=== PATIENT | female | born 1945 | race Caucasian/White ===

== ENCOUNTER 2019-10-30 08:59 | Inpatient (IN) | payer MEDICARE, OTHER ==
[2019-10-29 09:38] VITALS: BMI 20.8
[~2019-10-30 08:59] MED LIST: LACTATED RINGERS 1,000 ML IV SCH; MIDAZOLAM 2 MG/2 ML VIAL IV PRN; ONDANSETRON 4 MG/2 ML VIAL IVP PRN; fentaNYL (PF) 50 MCG/ML 2 ML AMP IV PRN; fentaNYL (PF) 50 MCG/ML 2 ML AMP IVP PRN
[2019-10-30] MEDS ORDERED: ONDANSETRON 4 MG/2 ML VIAL ONE (09:48)
[2019-10-30] MEDS ORDERED: DEXAMETHASONE SOD PHOSPHATE 10 MG/ML 1 ML VIAL IV ONE ×2 (10:01→11:45)
[2019-10-30] MEDS ORDERED: LIDOCAINE 1% (10MG/ML) FOR IV START INTRADERMA ONE (10:01)
[2019-10-30] MEDS ORDERED: PROPOFOL 10 MG/ML 20 ML VIAL IV ONE ×2 (10:27→12:10)
[2019-10-30] MEDS ORDERED: LIDOCAINE 1% INJ 10MG/ML (20 ML MDV) ONE (10:27)
--- NOTE | 2019-10-30 10:52 | P.PCN ---
Date of Procedure: 10/30/19 Procedure(s) Performed: BRIEF HISTORY: Patient is a 74-year-old pleasant white female scheduled for an elective colonoscopy as a part of surveillance of prior history of colon polyps. Her last colonoscopy was 5 years ago. PROCEDURE PERFORMED: Colonoscopy with biopsy. PREOPERATIVE DIAGNOSIS: History of colon polyps. IV sedation per Anesthesia. PROCEDURE: After informed consent was obtained, the patient, was brought into the endoscopy unit. IV sedation was administered by Anesthesia under continuous monitoring. Digital rectal examination was normal. Initially the Olympus CF-160 flexible video colonoscope was then inserted in the rectum, gradually advanced into the cecum with moderate to severe difficulty. Careful examination was performed as the scope was gradually being withdrawn. Ileocecal valve and the appendiceal orifice were visualized and appeared normal. Prep was excellent. Mucosa of the cecum, appeared normal. In the ascending colon there was a 5 mm polyp removed by cold biopsy. Rest of the ascending colon, transverse colon, descending colon, sigmoid colon, and rectum appeared normal. Scattered sigmoid diverticulosis seen. Retroflexion was performed in the rectum and no lesions were seen. The patient tolerated the procedure well. IMPRESSION: 5 mm ascending colon polyp status post removal by cold biopsy Scattered left-sided diverticulosis RECOMMENDATIONS: Findings of this examination were discussed with the patient as well as a family..He developed some aspiration during the procedure with extensive wheezing and hence will be observed in the postop closely. Patient was advised to follow with the biopsy results. If the biopsies show adenoma she can have a repeat colonoscopy in 5 yrs
[2019-10-30] MEDS ORDERED: methylPREDNISolone SOD SUCCI 125 MG/2 ML VIAL IVP ONE (10:58)
[2019-10-30] MEDS ORDERED: ALBUTEROL NEBULIZED 2.5 MG/3 ML INHALATION ONE ×2 (10:58→11:05)
[2019-10-30] MEDS ORDERED: MAGNESIUM SULFATE-D5W PMX 1 GM/100 ML BAG IVPB ONE ×2 (11:10→11:24)
[2019-10-30] MEDS ORDERED: MAGNESIUM SULFATE-D5W PMX 1 GM in DEXTROSE/WATER 1 100ML.BAG IVPB SCH (11:15)
[2019-10-30] MEDS ORDERED: IPRATROPIUM-ALBUTEROL 3 ML NEB INHALATION STA (11:22)
--- NOTE | 2019-10-30 11:51 | XR ---
EXAMINATION TYPE: XR chest 1V portable DATE OF EXAM: 10/30/2019 HISTORY: Shortness of breath. COMPARISON: 07/05/2019 TECHNIQUE: Single view of the chest is submitted. FINDINGS: Demonstrated are scattered senescent parenchymal change. Patchy density left perihilar and right infrahilar regions may reflect underlying infiltrate. Correla te clinically and progress studies are recommended. The heart is stable. Hilar and mediastinal structures are within normal limits. Degenerative changes are seen of the dorsal spine. IMPRESSION: 1. Patchy density left perihilar and right infrahilar regions may reflect underlying infiltrate. Cor relate clinically and progress studies are recommended.
[2019-10-30] MEDS ORDERED: LORazepam 2 MG/ML INJ IV ONE (11:52)
[2019-10-30] MEDS ORDERED: RACEPINEPHRINE 2.25% NEB 0.5 ML NEBU INHALATION ONE ×2 (11:52→11:54)
[2019-10-30] MEDS ORDERED: SUCCINYLCHOLINE CHLORIDE 100 MG/5 ML SYR IV ONE (12:10)
[2019-10-30] MEDS ORDERED: propofoL 100 ML IV ONE (12:22)
--- NOTE | 2019-10-30 12:23 | P.PCN ---
Date of Procedure: 10/30/19 Preoperative Diagnosis: respiratory failure Postoperative Diagnosis: respiratory failure Procedure(s) Performed: endotracheal intubation Implants: none Anesthesia: ADELIA Surgeon: Austin Smith Estimated Blood Loss (ml): 0 IV fluids (ml): 50 Urine output (ml): 0 Pathology: none sent Condition: stable Disposition: ICU Indications for Procedure: respiratory failure Description of Procedure: using a mac3 blade, a 7.0 cuffed endotracheal tube inserted first attempt, grade 3 view, ET CO2 detected and bilateral equal air entry confirmed, 24 cm at the lips. medication given, propofol 60 mg and succinyl choline 100 mg. patient will be transfered to ICU to be started on sedation and a Chest Xray to confirm tube placement.
[2019-10-30 12:34] LABS: Glucose,Whole Blood 316 mg/dL (75-99)
--- NOTE | 2019-10-30 13:07 | XR ---
EXAMINATION TYPE: XR chest 1V portable DATE OF EXAM: 10/30/2019 HISTORY: Shortness of breath. COMPARISON: 10/30/2019 TECHNIQUE: Single view of the chest is submitted. FINDINGS: Endotracheal tube has been placed with its distal tip by 1.6 cm from the stacey. NG tube is seen cour sing into the stomach. Patchy perihilar infiltrate noted on the left. The heart is stable. Hilar and mediastinal structures are within normal limits. Degenerative changes are seen of the dorsal spine. IMPRESSION: 1. Endotracheal tube has been placed with its distal tip by 1.6 cm from the stacey. NG tube is seen coursing into the stomach. Patchy perihilar infiltrate noted on the left.
[2019-10-30] MEDS ORDERED: MORPHINE SULFATE 2 MG/ML SYRINGE IVP PRN (13:16)
[2019-10-30] MEDS ORDERED: IPRATROPIUM-ALBUTEROL 3 ML NEB INHALATION PRN (13:17)
[2019-10-30] MEDS ORDERED: MORPHINE SULFATE 2 MG/ML SYRINGE IVP ONE (14:00)
[2019-10-30 14:22] LABS: ABG HCO3 25 mmol/L (21-25); ABG Oxygen Saturation 99.2 % (94-97); ABG PCO2 47 mmHg (35-45); ABG PH 7.33 (7.35-7.45); ABG PO2 176 mmHg (83-108); ABG TCO2 26 mmol/L (19-24); Allen Test Performed? Yes
[2019-10-30 15:01] LABS: ALT 17 U/L (4-34); AST 24 U/L (14-36); African American GFR (CKD) >90 (>60 ml/min/1.73 sqM); Albumin 3.8 g/dL (3.5-5.0); Alkaline Phosphatase 85 U/L (38-126); Anion Gap 8 mmol/L; Basophils % (A) 0 %; Blood Urea Nitrogen 12 mg/dL (7-17); Calcium 9.2 mg/dL (8.4-10.2); Carbon Dioxide 26 mmol/L (22-30); Chloride 101 mmol/L (98-107); Eosinophils # (A) 0.1 k/uL (0-0.7); Eosinophils % (A) 0 %; Glucose 217 mg/dL (74-99); HCT 41.8 % (34.0-46.0); HGB 13.3 gm/dL (11.4-16.0); Lymphocytes # (A) 0.5 k/uL (1.0-4.8); Lymphocytes % (A) 3 %; MCH 31.2 pg (25.0-35.0); MCHC 31.9 g/dL (31.0-37.0); MCV 98.1 fL (80.0-100.0); Mean Platelet Volume 6.8; Monocytes # (A) 0.5 k/uL (0-1.0); Monocytes % (A) 3 %; Neutrophils # (A) 14.8 k/uL (1.3-7.7); Neutrophils % (A) 93 %; Non-African American GFR(CKD) 84 (>60 ml/min/1.73 sqM); Platelet Count 325 k/uL (150-450); Potassium 3.6 mmol/L (3.5-5.1); RBC 4.26 m/uL (3.80-5.40); RDW 12.4 % (11.5-15.5); Sodium 135 mmol/L (137-145); Total Bilirubin 0.5 mg/dL (0.2-1.3); Total Protein 6.2 g/dL (6.3-8.2); WBC 15.8 k/uL (3.8-10.6)
[2019-10-30 15:10] LABS: Glucose,Whole Blood 222 mg/dL (75-99)
[2019-10-30] MEDS: IPRATROPIUM-ALBUTEROL 3 ML NEB INHALATION SCH ×2 (15:16→19:46)
[2019-10-30] MEDS: CHLORHEXIDINE GLUCONATE 15 ML CUP MUCOUS MEM SCH ×2 (15:24→20:16)
--- NOTE | 2019-10-30 15:25 | P.CNPUL ---
History of Present Illness Consult date: 10/30/19 Requesting physician: Austin Smith Reason for consult: dyspnea Chief complaint: Acute bronchospasm, acute respiratory failure History of present illness: 74-year-old white female patient of Alcon Melgoza PA-C, who presented to the hospital on 10/30/2027 for elective colonoscopy as a part of surveillance or prior history of colon polyps. Patient's last colonoscopy was 5 years ago. Colonoscopy showed 5 mg ascending colon polyp status post removal by cold biopsy, and scattered left-sided diverticulosis. During the procedure patient developed some aspiration with secondary acute bronchospasm, and respiratory distress. Patient was hypoxic, very wheezy, anxious, and wheezy, breathing treatments were administered, IV magnesium sulfate was given, patient was placed on BiPAP support with pressures of 18 and 6, and FiO2 of 100%, we were called emergently to the postoperative phase 1 recovery area for urgent evaluation placement in the intensive care unit. Racemic epinephrine was administered, patient was given dose of IV Decadron 6 mg, patient continued to be extremely anxious, sitting up straight in bed, tolerating BiPAP poorly, we attempted to give the patient has small dose of Ativan to 0.5 mg for anxiety and poor compliance with BiPAP. Patient continued to be very dyspneic, bronchospastic, IPAP pressure was dropped down to 12 in hopes of better tolerance of BIPAP, however patient became very air hungry, and started desaturating, and his IPAP pressure was increased back up to 18, after some observation for improvement of her breathing, patient unfortunately did not show significant improvement in terms of acute bronchospasm and acute dyspnea, remain very tachypneic, very labored breathing, anxious, and the decision was made to proceed with intubation placement on mechanical ventilator. Patient was sedated with propofol, currently on 75 mics per kilo per minute, transferred to the intensive care unit, on vent settings of assist control mode of ventilation with a rate of 14, Tylenol 400, FiO2 of 50%, and PEEP of 5. Patient continued to be extremely restless and fighting the vent, when necessary doses of morphine have been added, blood gas was obtained after bone marrow were on the mechanical ventilator, showing pO2 176, pCO2 47, and pH of 7.30. Chest x-ray immediately following the colonoscopy showed patchy density in the left. Hilar and right infrahilar regions that could reflect underlying infiltrate. Chest x-ray following intubation showed ET tube with its distal tip at 1.6 cm from the stacey, G-tube in the appropriate position, and patchy perihilar infiltrate noted on the left. Patient was given additional doses of IV steroids, additional sedation in the form of morphine in addition to Diprivan, empiric antibiotics in the form of Zosyn, nebulized bronchodilators. Of note patient has a history of COPD for which she follows with Dr. Salas in the office, last PFT from February, showed FEV1 of 51% of predicted and diffusion defect and DLCO of 43% of predicted. Maintenance COPD medications include Advair discus, Singulair, and Ventolin Review of Systems All systems: negative Constitutional: Denies chills, Denies fever Eyes: denies blurred vision, denies pain Ears, nose, mouth and throat: Denies headache, Denies sore throat Cardiovascular: Denies chest pain, Denies shortness of breath Respiratory: Reports dyspnea, Reports wheezing, Denies cough Gastrointestinal: Denies abdominal pain, Denies diarrhea, Denies nausea, Denies vomiting Genitourinary: Denies dysuria, Denies hematuria Musculoskeletal: Denies myalgias Integumentary: Denies pruritus, Denies rash Neurological: Denies numbness, Denies weakness Psychiatric: Reports anxiety, Denies depression Endocrine: Denies fatigue, Denies weight change Past Medical History Past Medical History: COPD Additional Past Medical History / Comment(s): SEASONAL ALLERGIES, kidney stone History of Any Multi-Drug Resistant Organisms: None Reported Past Surgical History: Hysterectomy, Tonsillectomy Additional Past Surgical History / Comment(s): GANGLION CYST LEFT WRIST, BSO, COLONOSCOPY Past Anesthesia/Blood Transfusion Reactions: Motion Sickness Past Psychological History: No Psychological Hx Reported Smoking Status: Former smoker Past Alcohol Use History: Rare Additional Past Alcohol Use History / Comment(s): QUIT SMOKING 2008-STARTED SMOKING AGAIN IN 2016-SMOKES ABOUT 7-9 CIGARETTES DAILY Past Drug Use History: None Reported - Past Family History Father Family Medical History: Cancer Additional Family Medical History / Comment(s): COLON CANCER Mother Family Medical History: Cancer Additional Family Medical History / Comment(s): COLON CANCER Medications and Allergies Home Medications Medication Instructions Recorded Confirmed Type Albuterol Sulfate [Ventolin HFA] 1 - 2 puff INHALATION Q6H PRN 10/29/19 10/30/19 History Fluticasone/Salmeterol [Advair 1 inhalation PO BID 10/29/19 10/30/19 History 250-50 Diskus] Allergies Allergy/AdvReac Type Severity Reaction Status Date / Time No Known Allergies Allergy Verified 10/30/19 09:44 Physical Exam Vitals: Vital Signs Temp Pulse Pulse Pulse Resp BP Pulse Ox 10/30/19 12:05 122 H 10/30/19 12:02 118 H 32 H 176/98 98 10/30/19 11:53 117 H 10/30/19 11:46 120 H 32 H 205/97 98 10/30/19 11:32 118 H 28 H 206/98 98 10/30/19 11:30 118 H 10/30/19 11:23 117 H 10/30/19 11:16 110 H 32 H 208/93 96 10/30/19 11:00 116 H 32 H 219/98 66 L 10/30/19 10:54 96.7 F L 91 28 H 216/97 76 L 10/30/19 09:41 97.6 F 81 16 154/68 95 Intake and Output 10/29/19 10/30/19 10/30/19 22:59 06:59 14:59 Intake Total 847.964 Balance 847.964 Intake: IV 800 Intake, IV Titration 47.964 Amount propofoL 1,000 mg In 47.964 Empty Bag 1 bag @ Titrate IV .Q0M [facility] Rx#: [id number] Other: Weight 57.1 kg GENERAL EXAM: Alert, very agitated, 74-year-old white female, on BiPAP support, seen in the phase 1 recovery area, sitting up straight and trying to pull off the BiPAP mask off, very dyspneic and bronchospastic. BiPAP settings are currently at 18/6, and FiO2 of 100% HEAD: Normocephalic/atraumatic. EYES: Normal reaction of pupils, equal size. Conjunctiva pink, sclera white. NOSE: Clear with pink turbinates. THROAT: No erythema or exudates. NECK: No masses, no JVD, no thyroid enlargement, no adenopathy. CHEST: No chest wall deformity. Symmetrical expansion. LUNGS: Tight, and diminished air entry with diffuse expiratory wheezing, prolongation of expiratory phase of breathing, wheezing upper and lower airways CVS: Regular rate and rhythm, normal S1 and S2, no gallops, no murmurs, no rubs ABDOMEN: Soft, nontender. No hepatosplenomegaly, normal bowel sounds, no guarding or rigidity. EXTREMITIES: No clubbing, no edema, no cyanosis, 2+ pulses and upper and lower extremities. MUSCULOSKELETAL: Muscle strength and tone normal. SPINE: No scoliosis or deformity SKIN: No rashes CENTRAL NERVOUS SYSTEM: Alert and oriented -3. No focal deficits, tone is normal in all 4 extremities. Results - Laboratory Findings ABG ABG pH 7.33 (7.35-7.45) L 10/30/19 14:20 ABG pCO2 47 mmHg (35-45) H 10/30/19 14:20 ABG pO2 176 mmHg (83-108) H 10/30/19 14:20 ABG O2 Saturation 99.2 % (94-97) H 10/30/19 14:20 Abnormal lab findings: Abnormal Labs 10/30/19 10/30/19 12:32 14:20 ABG pH 7.33 L ABG pCO2 47 H ABG pO2 176 H ABG Total CO2 26 H ABG O2 Saturation 99.2 H POC Glucose (mg/dL) 316 H - Diagnostic Findings Chest x-ray: report reviewed, image reviewed Assessment and Plan Plan: Assessment: #1. Acute hypoxic respiratory failure related to acute aspiration of gastric secretions during colonoscopy, with acute and severe bronchospasm, respiratory distress, and hypoxia, requiring BiPAP support, and subsequently intubation and placement on mechanical ventilation on 10/30/2019. Follow-up chest x-ray showed patchy perihilar infiltrate on the left, possibly related to acute aspiration, and Zosyn was initiated for empiric antibiotic coverage in addition to IV steroids and nebulized bronchodilators #2. Elective colonoscopy on 10/30/2019, for surveillance a prior history of colon polyps, with findings of 5 mm ascending colon polyp status post removal by cold biopsy, and scattered left-sided diverticulosis #3. Advanced COPD, stage III, with underlying FEV1 of 51% of predicted, and impaired diffusion capacity, and DLCO 42% of predicted as of February 2018. Currently not oxygen dependent on the regular basis #4. [id number] smoking history, patient may still be smoking at this time (currently unable to determine) #5. Straight of multiple nonspecific pulmonary nodules, under surveillance, patient follows with Dr. Salas in the pulmonary clinic #6. Chronic dyspnea on exertion related to severe COPD #7. Severe GERD/reflux Plan: Continue mechanical ventilator support, continue sedation, we will add morphine for pain and discomfort and additional sedation, to maintain RASS -3, continue IV Solu-Medrol 60 mg every 6 hours, nebulized bronchodilators, and Pulmicort, Perforomist, we will add empiric antibiotic coverage, post intubation blood gases have been reviewed, vent adjustments have been made, currently patient is on assist-control, and the rate will be increased to 18, tidal volume 400, FiO2 is down to 35% and PEEP of 5. GI and DVT prophylaxis, repeat chest x-ray and labs in the morning. We'll continue to follow, plan on waking the patient up in the morning, assessment of mentation, will likely attempt to wean and extubate in the morning. I performed a history & physical examination of the patient and discussed their management with my nurse practitioner, Kristal Pro. I reviewed the nurse practitioner's note and agree with the documented findings and plan of care. Lung sounds are positive for diffuse wheezes throughout the lung olivier. The findings and the impression was discussed with the patient. I attest to the documentation by the nurse practitioner. Time with Patient: Greater than 30
[2019-10-30] MEDS: PIPERACILLIN-TAZOBACTAM 3.375 GM in SODIUM CHLORIDE 0.9% 100 ML IVPB SCH (15:26)
[2019-10-30] MEDS: SODIUM CHLORIDE 0.9% 1,000 ML IV SCH (15:26)
[2019-10-30] MEDS: HEPARIN SODIUM,PORCINE 5,000 UNIT/ML 1 ML VIAL SQ SCH (15:27)
[2019-10-30] MEDS: methylPREDNISolone SOD SUCCI 125 MG/2 ML VIAL IV SCH ×2 (15:28→18:47)
[2019-10-30] MEDS: INSULIN ASPART (NovoLOG) 100 UNIT/ML VIAL SQ SCH ×2 (15:28→18:47)
--- NOTE | 2019-10-30 16:43 | PCN ---
PROCEDURE NOTE PROCEDURE: Emergent placement of right radial arterial line. PREOPERATIVE DIAGNOSIS: Acute hypoxic respiratory failure secondary to acute exacerbation of COPD, and hypotension. POSTOPERATIVE DIAGNOSIS: Acute hypoxic respiratory failure secondary to acute exacerbation of COPD, and hypotension. ANESTHESIA: None deployed. PROCEDURE: The patient was placed in a supine position, the right wrist was prepared in a sterile fashion and drapes were applied. The right radial artery was palpated, cannulated, and a guidewire was placed. A Cook catheter was inserted over the guidewire, and the guidewire was removed. Good blood flow and good waveform noted. No evidence of any immediate complications. The line was secured using 3.0 silk suture. MMODL / IJN: [id number] /
[2019-10-30 18:41] LABS: Glucose,Whole Blood 140 mg/dL (75-99)
[2019-10-30] MEDS ORDERED: Potassium Replacement Protocol 1 EACH MISC MISCELLANE PRN (18:43)
[2019-10-30] MEDS: BUDESONIDE 1 MG/2 ML NEBU INHALATION SCH (19:46)
[2019-10-30] MEDS: FORMOTEROL FUMARATE 20 MCG/2 ML NEBU INHALATION SCH (19:46)
[2019-10-30] MEDS ORDERED: POTASSIUM BICARBONATE/CIT AC 20 MEQ TABLET.EFF NG-TUBE SCH (20:00)
[2019-10-30] MEDS: MORPHINE SULFATE 10 MG/ML 1ML VIAL IVP PRN (20:03)
[2019-10-30] MEDS: PANTOPRAZOLE 40 MG/10 ML VIAL IVP SCH (20:16)
--- NOTE | 2019-10-30 20:48 | P.HPIM ---
History of Present Illness H&P Date: 10/30/19 Chief Complaint: Acute respiratory failure. Patient is a 44-year-old female with a known history of COPD and family history of colon cancer in both parents and a prior history of colon polyps, previous history of smoking was initially scheduled for elective colonoscopy for cancer surveillance. Patient was found to have 5 mm ascending colon polyp status post removal by cold biopsy and also found to have scattered left-sided diverticulosis. Postprocedure patient became hypoxic and wheezy and went into respiratory failure. Patient was placed BiPAP in the recovery area. Patient was given a dose of epinephrine and IV Decadron 6 mg for acute bronchospasm. Patient became very anxious and also given 0.5 mg of Ativan. Due to continued dyspnea patient was eventually intubated and transferred to MICU. Patient was very restless and fighting over the vent. Patient was given a dose of morphine and was placed on Versed drip. ABG showed pH of 7.33, PCO2 47, PO2 176 and bicarb is 26 Lab data showed WBC 15.8, hemoglobin 13.3 and platelets 325 Electrolytes within normal limits. Blood sugar was 316 Chest x-ray showed patchy density left perihilar and right infrahilar region may reflect underlying infiltrate. Correlate clinically and progress studies are recommended. Review of Systems Review of systems could not be obtained at this time. Past Medical History Past Medical History: COPD Additional Past Medical History / Comment(s): SEASONAL ALLERGIES, kidney stone History of Any Multi-Drug Resistant Organisms: None Reported Past Surgical History: Hysterectomy, Tonsillectomy Additional Past Surgical History / Comment(s): GANGLION CYST LEFT WRIST, BSO, COLONOSCOPY Past Anesthesia/Blood Transfusion Reactions: Motion Sickness Past Psychological History: No Psychological Hx Reported Smoking Status: Former smoker Past Alcohol Use History: Rare Additional Past Alcohol Use History / Comment(s): QUIT SMOKING 2008-STARTED SMOKING AGAIN IN 2016-SMOKES ABOUT 7-9 CIGARETTES DAILY Past Drug Use History: None Reported - Past Family History Father Family Medical History: Cancer Additional Family Medical History / Comment(s): COLON CANCER Mother Family Medical History: Cancer Additional Family Medical History / Comment(s): COLON CANCER Medications and Allergies Home Medications Medication Instructions Recorded Confirmed Type Albuterol Sulfate [Ventolin HFA] 1 - 2 puff INHALATION Q6H PRN 09/22/20 09/23/20 History Fluticasone/Salmeterol [Advair 1 inhalation PO BID 10/29/19 10/30/19 History 250-50 Diskus] Allergies Allergy/AdvReac Type Severity Reaction Status Date / Time No Known Allergies Allergy Verified 10/30/19 09:44 Physical Exam Vitals: Vital Signs Temp Pulse Pulse Pulse Resp BP Pulse Ox 10/30/19 12:05 122 H 10/30/19 12:02 118 H 32 H 176/98 98 10/30/19 11:53 117 H 10/30/19 11:46 120 H 32 H 205/97 98 10/30/19 11:32 118 H 28 H 206/98 98 10/30/19 11:30 118 H 10/30/19 11:23 117 H 10/30/19 11:16 110 H 32 H 208/93 96 10/30/19 11:00 116 H 32 H 219/98 66 L 10/30/19 10:54 96.7 F L 91 28 H 216/97 76 L 10/30/19 09:41 97.6 F 81 16 154/68 95 Intake and Output 10/29/19 10/30/19 10/30/19 22:59 06:59 14:59 Intake Total 847.964 Balance 847.964 Intake: IV 800 Intake, IV Titration 47.964 Amount propofoL 1,000 mg In 47.964 Empty Bag 1 bag @ Titrate IV .Q0M [facility] Rx#: [id number] Other: Weight 57.1 kg PHYSICAL EXAMINATION: Patient is lying in the bed comfortably,On mechanical ventilator. Sedated... HEENT: Normocephalic. Neck is supple. Pupils reactive. Nostrils clear. Oral cavity is moist. Ears reveal no drainage. Neck reveals no JVD, carotid bruits, or thyromegaly. CHEST EXAMINATION: Trachea is central. Symmetrical expansion.Bilateral expiratory wheezing otherwise no crackles. Bilateral air entry present. . CARDIAC: Normal S1, S2 with no gallops. No murmurs ABDOMEN: Soft. Bowel sounds normal. No organomegaly. No abdominal bruits. Extremities: reveal no edema. No clubbing or cyanosis Neurologically Patient is currently sedated and intubated.. No focal deficits noted Skin: No rash or skin lesions. Psychiatric: Could not obtain from the patient. Musculoskeletal: No joint swelling or deformity. Results CBC & Chem 7: 10/30/19 14:34 10/30/19 14:34 Labs: Abnormal Lab Results - Last 24 Hours (Table) 10/30/19 10/30/19 Range/Units 12:32 14:20 ABG pH 7.33 L (7.35-7.45) ABG pCO2 47 H (35-45) mmHg ABG pO2 176 H (83-108) mmHg ABG Total CO2 26 H (19-24) mmol/L ABG O2 Saturation 99.2 H (94-97) % POC Glucose (mg/dL) 316 H (75-99) mg/dL Thrombosis Risk Factor Assmnt - DVT/VTE Prophylaxis DVT/VTE Prophylaxis: Pharmacologic Prophylaxis ordered - Choose All That Apply Any of the Below Risk Factors Present?: No Each Risk Factor Represents 2 Points: Age 61-74 years Thrombosis Risk Factor Assessment Total Risk Factor Score: 2 Thrombosis Risk Factor Assessment Level: Low Risk Assessment and Plan Assessment: Acute hypoxic respiratory failure due to Acute bronchospasm and possible aspiration during colonoscopy procedure. Elective colonoscopy for cancer surveillance due to history of polyps. Advanced COPD History of multiple nonspecific pulmonary nodules on follow-up with pulmonary in the clinic GERD Previous history of smoking DVT prophylaxis. Plan: Patient is currently sedated and on mechanical ventilation. Continued on IV Solu-Medrol bronchodilators and empiric antibiotics. Continue to monitor closely and pulmonary is on board. Possible extubation in the next 24 hours. Further recommendations based on the clinical course. Time with Patient: Greater than 30
[2019-10-30 23:51] LABS: Glucose,Whole Blood 157 mg/dL (75-99)
[2019-10-31] MEDS: MORPHINE SULFATE 10 MG/ML 1ML VIAL IVP PRN (00:01)
[2019-10-31] MEDS: INSULIN ASPART (NovoLOG) 100 UNIT/ML VIAL SQ SCH ×5 (00:14→21:29)
[2019-10-31] MEDS: PIPERACILLIN-TAZOBACTAM 3.375 GM in SODIUM CHLORIDE 0.9% 100 ML IVPB SCH ×3 (00:15→15:35)
[2019-10-31] MEDS: methylPREDNISolone SOD SUCCI 125 MG/2 ML VIAL IV SCH ×2 (00:15→06:02)
[2019-10-31] MEDS: HEPARIN SODIUM,PORCINE 5,000 UNIT/ML 1 ML VIAL SQ SCH ×3 (00:16→15:35)
[2019-10-31] MEDS: IPRATROPIUM-ALBUTEROL 3 ML NEB INHALATION SCH ×6 (00:26→20:19)
[2019-10-31 04:15] LABS: Basophils % (A) 0 %; Eosinophils % (A) 0 %; HCT 35.5 % (34.0-46.0); HGB 11.5 gm/dL (11.4-16.0); Lymphocytes # (A) 0.5 k/uL (1.0-4.8); Lymphocytes % (A) 3 %; MCH 30.9 pg (25.0-35.0); MCHC 32.3 g/dL (31.0-37.0); MCV 95.6 fL (80.0-100.0); Mean Platelet Volume 7.3; Monocytes # (A) 0.2 k/uL (0-1.0); Monocytes % (A) 2 %; Neutrophils # (A) 14.2 k/uL (1.3-7.7); Neutrophils % (A) 95 %; Platelet Count 239 k/uL (150-450); RBC 3.71 m/uL (3.80-5.40); RDW 12.2 % (11.5-15.5); WBC 14.9 k/uL (3.8-10.6)
[2019-10-31 04:30] LABS: African American GFR (CKD) >90 (>60 ml/min/1.73 sqM); Anion Gap 4 mmol/L; Blood Urea Nitrogen 15 mg/dL (7-17); Calcium 8.8 mg/dL (8.4-10.2); Carbon Dioxide 25 mmol/L (22-30); Chloride 105 mmol/L (98-107); Glucose 193 mg/dL (74-99); Non-African American GFR(CKD) 87 (>60 ml/min/1.73 sqM); Potassium 3.9 mmol/L (3.5-5.1); Sodium 134 mmol/L (137-145)
[2019-10-31 06:00] LABS: Glucose,Whole Blood 187 mg/dL (75-99)
[2019-10-31] MEDS ORDERED: POTASSIUM BICARBONATE/CIT AC 20 MEQ TABLET.EFF NG-TUBE SCH (06:00)
--- NOTE | 2019-10-31 06:38 | XR ---
EXAMINATION TYPE: XR chest 1V portable DATE OF EXAM: 10/31/2019 CLINICAL HISTORY: Difficulty breathing progress study. TECHNIQUE: Single AP portable semiupright view of the chest is obtained. COMPARISON: Chest x-ray from one day earlier and older studies. FINDINGS: Stable slightly low-lying endotracheal and orogastric tubes. Background chronic emphysemat ous change with worsening left perihilar opacity and developing lateral left midlung wedge-shaped con solidation with air bronchograms. Right lung remains clear. No pleural effusion or pneumothorax noted . Cardiac silhouette size stable and mildly enlarged with atherosclerotic aorta. Osseous structures a re intact. IMPRESSION: Chronic emphysematous change with worsening left perihilar acute infiltrate and/or edema and developing lateral left midlung focal consolidation with air bronchograms are
[2019-10-31 07:16] LABS: ABG Base Excess -0.3 mmol/L; ABG HCO3 25 mmol/L (21-25); ABG Oxygen Saturation 98.2 % (94-97); ABG PCO2 40 mmHg (35-45); ABG PO2 107 mmHg (83-108); ABG TCO2 26 mmol/L (19-24)
[2019-10-31 07:23] LABS: Allen Test Performed? no
[2019-10-31] MEDS: BUDESONIDE 1 MG/2 ML NEBU INHALATION SCH ×2 (07:40→20:19)
[2019-10-31] MEDS: FORMOTEROL FUMARATE 20 MCG/2 ML NEBU INHALATION SCH ×2 (07:40→20:19)
[2019-10-31] MEDS ORDERED: PANTOPRAZOLE 40 MG/10 ML VIAL IVP SCH (09:00)
[2019-10-31 09:07] LABS: ABG Base Excess -0.6 mmol/L; ABG HCO3 24 mmol/L (21-25); ABG Oxygen Saturation 98.5 % (94-97); ABG PCO2 40 mmHg (35-45); ABG PO2 116 mmHg (83-108); ABG TCO2 26 mmol/L (19-24)
[2019-10-31 09:09] LABS: Allen Test Performed? no
[2019-10-31] MEDS ORDERED: ALPRAZolam 0.25 MG TAB PO PRN (09:27)
[2019-10-31] MEDS: amLODIPine 5 MG TAB PO SCH (09:54)
[2019-10-31] MEDS: PANTOPRAZOLE 40 MG TABLET PO SCH ×2 (09:54→17:23)
[2019-10-31] MEDS: SODIUM CHLORIDE 0.9% 1,000 ML IV SCH (10:11)
--- NOTE | 2019-10-31 12:30 | P.PN ---
Subjective Progress Note Date: 10/31/19 Principal diagnosis: Acute hypoxic respiratory failure secondary to aspiration of gastric secretions during colonoscopy with severe bronchospasm requiring intubation and mechanical ventilation. 74-year-old white female patient of Alcon Melgoza PA-C, who presented to the hospital on 10/30/2027 for elective colonoscopy as a part of surveillance or prior history of colon polyps. Patient's last colonoscopy was 5 years ago. Colonoscopy showed 5 mg ascending colon polyp status post removal by cold biopsy, and scattered left-sided diverticulosis. During the procedure patient developed some aspiration with secondary acute bronchospasm, and respiratory distress. Patient was hypoxic, very wheezy, anxious, and wheezy, breathing treatments were administered, IV magnesium sulfate was given, patient was placed on BiPAP support with pressures of 18 and 6, and FiO2 of 100%, we were called emergently to the postoperative phase 1 recovery area for urgent evaluation placement in the intensive care unit. Racemic epinephrine was administered, patient was given dose of IV Decadron 6 mg, patient continued to be extremely anxious, sitting up straight in bed, tolerating BiPAP poorly, we attempted to give the patient has small dose of Ativan to 0.5 mg for anxiety and poor compliance with BiPAP. Patient continued to be very dyspneic, bronchospastic, IPAP pressure was dropped down to 12 in hopes of better tolerance of BIPAP, however patient became very air hungry, and started desaturating, and his IPAP pressure was increased back up to 18, after some observation for improvement of her breathing, patient unfortunately did not show significant improvement in terms of acute bronchospasm and acute dyspnea, remain very tachypneic, very labored breathing, anxious, and the decision was made to proceed with intubation placement on mechanical ventilator. Patient was sedated with propofol, currently on 75 mics per kilo per minute, transferred to the intensive care unit, on vent settings of assist control mode of ventilation with a rate of 14, Tylenol 400, FiO2 of 50%, and PEEP of 5. Patient continued to be extremely restless and fighting the vent, when necessary doses of morphine have been added, blood gas was obtained after bone marrow were on the mechanical ventilator, showing pO2 176, pCO2 47, and pH of 7.30. Chest x-ray immediately following the colonoscopy showed patchy density in the left. Hilar and right infrahilar regions that could reflect underlying infiltrate. Chest x-ray following intubation showed ET tube with its distal tip at 1.6 cm from the elizabeth a, G-tube in the appropriate position, and patchy perihilar infiltrate noted on the left. Patient was given additional doses of IV steroids, additional sedation in the form of morphine in addition to Diprivan, empiric antibiotics in the form of Zosyn, nebulized bronchodilators. Of note patient has a history of COPD for which she follows with Dr. Salas in the office, last PFT from February, showed FEV1 of 51% of predicted and diffusion defect and DLCO of 43% of predicted. Maintenance COPD medications include Advair discus, Singulair, and Ventolin Patient was reevaluated today on 10/27/19, remains in the ICU, intubated and mechanically ventilated. Patient is on assist control rate of 18 tidal volume is 400 FiO2 is 35% and PEEP of 5 ABG showed a pO2 of 107 pCO2 of 40 pH of 7.40. Patient is on propofol at 25 mcg/kg/m, IV fluid is 0.9 normal saline at 50 mL per hour. Patient is not requiring any pressors. She is arousable, follows simple instructions, heart rate is sinus at 92 beats per minutes. Chest x-ray showed no evidence of significant abnormality, minimal left perihilar infiltrate noted. Right lower lobe atelectasis or infiltrate noted. Her labs were basically unremarkable. And a nasogastric tube is in place but she is not on enteral feeding get. After reviewing her chest x-ray and reviewing her labs, patient was switched to a pressure support of 10 and PEEP of 5. Placed on this mode for about half an hour, repeat ABG was excellent. Hence patient was extub ated to a nasal cannula. In the meantime I kept her on bronchodilators and steroids. I will cut the dose of Solu-Medrol to 40 mg IV push every 8 hours, and I will continue antibiotics/Zosyn possibly switch her to Augmentin tomorrow. ABG on CPAP showed a pO2 of 116 pCO2 of 40 pH of 7.40. WBC count is 14.9 hemoglobin is 11.5. Index was are normal renal profile is normal. Objective - Vital Signs Vital signs: Vital Signs Temp 98.3 F 10/31/19 04:00 Pulse 96 10/31/19 11:25 Resp 18 10/31/19 07:00 BP 96/47 09/23/20 16:00 Pulse Ox 99 10/31/19 07:00 Intake & Output 10/30/19 10/31/19 10/31/19 18:59 06:59 18:59 Intake Total 1356.964 876.000 106.459 Output Total 270 566 55 Balance 1086.964 310.000 51.459 Weight 57.1 kg 62.8 kg Intake: IV 809 686 53 Normal Saline Pressure 9 36 3 Bag Piperacillin-Tazobactam 3 100 .375 gm In Sodium Chloride 0.9% 100 ml @ 25 mls/hr IVPB Q8HR [facility] Rx# :[id number] Sodium Chloride 0.9% 1, 550 50 000 ml @ 50 mls/hr IV . Q20H [facility] Rx#:[id number] Intake, IV Titration 547.964 150.000 53.459 Amount Piperacillin-Tazobactam 3 100 .375 gm In Sodium Chloride 0.9% 100 ml @ 25 mls/hr IVPB Q8HR [facility] Rx# :[id number] Sodium Chloride 0.9% 1, 300 50 000 ml @ 50 mls/hr IV . Q20H [facility] Rx#:[id number] propofoL 1,000 mg In 147.964 100.000 53.459 Empty Bag 1 bag @ Titrate IV .Q0M [facility] Rx#: [id number] Other 40 Output: Gastric Drainage 100 Urine 270 466 55 Other: Voiding Method Indwelling Catheter Indwelling Catheter ABP, PAP, CO, CI - Last Documented Arterial Blood Pressure 121/40 - Exam GENERAL EXAM: Alert, very agitated, 74-year-old white female, on mechanical ventilation, arousable, in no distress HEAD: Normocephalic/atraumatic. EENT: PERRLA, EOMI, neck is, endotracheal tube and nasogastric tube are intact. CHEST: No chest wall deformity. Symmetrical expansion. LUNGS: Diminished breath sound bilaterally no crackles or rhonchi or wheezes Cardiac: Normal sinus, no S3 gallop. Abdomen: Soft nontender no megaly no rebound no guarding. EXTREMITIES: No clubbing, no edema, no cyanosis, 2+ pulses and upper and lower extremities. MUSCULOSKELETAL: Muscle strength and tone normal. SPINE: No scoliosis or deformity SKIN: No rashes CENTRAL NERVOUS SYSTEM: Alert and oriented 3 focal neurologic deficits. Psychiatric: Normal mood affect and normal mental status examination. - Labs CBC & Chem 7: 10/31/19 04:05 10/31/19 04:05 Labs: Abnormal Lab Results - Last 24 Hours (Table) 10/30/19 10/30/19 10/30/19 Range/Units 12:32 14:20 14:34 WBC 15.8 H (3.8-10.6) k/uL RBC (3.80-5.40) m/uL Neutrophils # 14.8 H (1.3-7.7) k/uL Lymphocytes # 0.5 L (1.0-4.8) k/uL ABG pH 7.33 L (7.35-7.45) ABG pCO2 47 H (35-45) mmHg ABG pO2 176 H (83-108) mmHg ABG Total CO2 26 H (19-24) mmol/L ABG O2 Saturation 99.2 H (94-97) % Sodium (137-145) mmol/L Glucose (74-99) mg/dL POC Glucose (mg/dL) 316 H (75-99) mg/dL Magnesium (1.6-2.3) mg/dL Total Protein (6.3-8.2) g/dL 10/30/19 10/30/19 10/30/19 Range/Units 14:34 14:34 15:08 WBC (3.8-10.6) k/uL RBC (3.80-5.40) m/uL Neutrophils # (1.3-7.7) k/uL Lymphocytes # (1.0-4.8) k/uL ABG pH (7.35-7.45) ABG pCO2 (35-45) mmHg ABG pO2 (83-108) mmHg ABG Total CO2 (19-24) mmol/L ABG O2 Saturation (94-97) % Sodium 135 L (137-145) mmol/L Glucose 217 H (74-99) mg/dL POC Glucose (mg/dL) 222 H (75-99) mg/dL Magnesium 2.7 H (1.6-2.3) mg/dL Total Protein 6.2 L (6.3-8.2) g/dL 10/30/19 10/30/19 10/31/19 Range/Units 18:39 23:49 04:05 WBC 14.9 H (3.8-10.6) k/uL RBC 3.71 L (3.80-5.40) m/uL Neutrophils # 14.2 H (1.3-7.7) k/uL Lymphocytes # 0.5 L (1.0-4.8) k/uL ABG pH (7.35-7.45) ABG pCO2 (35-45) mmHg ABG pO2 (83-108) mmHg ABG Total CO2 (19-24) mmol/L ABG O2 Saturation (94-97) % Sodium (137-145) mmol/L Glucose (74-99) mg/dL POC Glucose (mg/dL) 140 H 157 H (75-99) mg/dL Magnesium (1.6-2.3) mg/dL Total Protein (6.3-8.2) g/dL 10/31/19 10/31/19 10/31/19 Range/Units 04:05 05:57 07:14 WBC (3.8-10.6) k/uL RBC (3.80-5.40) m/uL Neutrophils # (1.3-7.7) k/uL Lymphocytes # (1.0-4.8) k/uL ABG pH (7.35-7.45) ABG pCO2 (35-45) mmHg ABG pO2 (83-108) mmHg ABG Total CO2 26 H (19-24) mmol/L ABG O2 Saturation 98.2 H (94-97) % Sodium 134 L (137-145) mmol/L Glucose 193 H (74-99) mg/dL POC Glucose (mg/dL) 187 H (75-99) mg/dL Magnesium (1.6-2.3) mg/dL Total Protein (6.3-8.2) g/dL 10/31/19 Range/Units 09:05 WBC (3.8-10.6) k/uL RBC (3.80-5.40) m/uL Neutrophils # (1.3-7.7) k/uL Lymphocytes # (1.0-4.8) k/uL ABG pH (7.35-7.45) ABG pCO2 (35-45) mmHg ABG pO2 116 H (83-108) mmHg ABG Total CO2 26 H (19-24) mmol/L ABG O2 Saturation 98.5 H (94-97) % Sodium (137-145) mmol/L Glucose (74-99) mg/dL POC Glucose (mg/dL) (75-99) mg/dL Magnesium (1.6-2.3) mg/dL Total Protein (6.3-8.2) g/dL Assessment and Plan Assessment: Impression: Acute hypoxic respiratory failure secondary to aspiration of gastric secretions during colonoscopy, unexpected, patient developed severe bronchospasm requiring intubation and mechanical ventilation as the patient failed to BiPAP and multiple doses of updrafts, Vaponefrin, and Decadron as well as Solu-Medrol and magnesium sulfate. Elective colonoscopy on 10/30/19, history of polyps. Advanced stage COPD, Gold stage III FEV1 is 51%. Acute exacerbation of COPD, exacerbated by her aspiration of gastric secretions. Mild aspiration pneumonia is suspected on chest x-ray today. History of severe GERD. Could be a major concerning factor to her aspiration. Recommendation: Patient was given a trial of pressure support and CPAP, and later on extubated after reviewing the ABG and weaning parameters. Continue antibiotics. Continue bronchodilators. Continue Solu-Medrol. Advanced diet as tolerated. Continue to monitor in the ICU for the next 24 hours and possibly discharge home tomorrow. Critical care time is 33 minutes. Time with Patient: Greater than 30
[2019-10-31 12:45] LABS: Glucose,Whole Blood 120 mg/dL (75-99)
[2019-10-31] MEDS: methylPREDNISolone SOD SUCCI 40 MG/ML 1 ML VIAL IV SCH (15:35)
[2019-10-31 16:18] LABS: Hemoglobin A1C 5.6 % (4.0-6.0)
[2019-10-31 16:37] LABS: Glucose,Whole Blood 133 mg/dL (75-99)
[2019-10-31] MEDS: CHLORHEXIDINE GLUCONATE 15 ML CUP MUCOUS MEM SCH (18:37)
[2019-10-31] MEDS: PANTOPRAZOLE 40 MG/10 ML VIAL IVP SCH (18:38)
[2019-10-31 20:58] LABS: Glucose,Whole Blood 153 mg/dL (75-99)
[2019-10-31] MEDS: BENZOCAINE/MENTHOL LOZENG 1 EACH LOZENGE MUCOUS MEM PRN (21:31)
[2019-11-01] MEDS: PIPERACILLIN-TAZOBACTAM 3.375 GM in SODIUM CHLORIDE 0.9% 100 ML IVPB SCH ×4 (00:15→23:54)
[2019-11-01] MEDS: methylPREDNISolone SOD SUCCI 40 MG/ML 1 ML VIAL IV SCH ×2 (00:15→08:38)
[2019-11-01] MEDS: HEPARIN SODIUM,PORCINE 5,000 UNIT/ML 1 ML VIAL SQ SCH ×4 (00:16→23:54)
[2019-11-01] MEDS: IPRATROPIUM-ALBUTEROL 3 ML NEB INHALATION SCH ×7 (00:51→23:30)
[2019-11-01 04:25] LABS: Basophils % (A) 0 %; Eosinophils % (A) 0 %; HCT 34.5 % (34.0-46.0); HGB 10.8 gm/dL (11.4-16.0); Lymphocytes # (A) 0.5 k/uL (1.0-4.8); Lymphocytes % (A) 3 %; MCH 30.4 pg (25.0-35.0); MCHC 31.3 g/dL (31.0-37.0); MCV 97.3 fL (80.0-100.0); Mean Platelet Volume 7.5; Monocytes # (A) 0.5 k/uL (0-1.0); Monocytes % (A) 3 %; Neutrophils # (A) 14.4 k/uL (1.3-7.7); Neutrophils % (A) 94 %; Platelet Count 242 k/uL (150-450); RBC 3.55 m/uL (3.80-5.40); RDW 12.6 % (11.5-15.5); WBC 15.3 k/uL (3.8-10.6)
[2019-11-01 04:36] LABS: African American GFR (CKD) >90 (>60 ml/min/1.73 sqM); Anion Gap 4 mmol/L; Blood Urea Nitrogen 17 mg/dL (7-17); Calcium 9.2 mg/dL (8.4-10.2); Carbon Dioxide 25 mmol/L (22-30); Chloride 107 mmol/L (98-107); Glucose 143 mg/dL (74-99); Non-African American GFR(CKD) 88 (>60 ml/min/1.73 sqM); Potassium 4.4 mmol/L (3.5-5.1); Sodium 136 mmol/L (137-145)
[2019-11-01 07:16] LABS: Glucose,Whole Blood 139 mg/dL (75-99)
[2019-11-01] MEDS: BENZOCAINE/MENTHOL LOZENG 1 EACH LOZENGE MUCOUS MEM PRN ×3 (07:51→19:38)
[2019-11-01] MEDS: FORMOTEROL FUMARATE 20 MCG/2 ML NEBU INHALATION SCH ×2 (08:11→20:26)
[2019-11-01] MEDS: BUDESONIDE 1 MG/2 ML NEBU INHALATION SCH ×2 (08:11→20:26)
--- NOTE | 2019-11-01 08:27 | XR ---
EXAMINATION TYPE: XR chest 1V portable DATE OF EXAM: 11/01/2019 COMPARISON: 10/31/2019 INDICATION: Tube placement TECHNIQUE: Single frontal view of the chest is obtained. FINDINGS: The heart size is normal. The pulmonary vasculature is dominant. The lungs are clear. The endotracheal tube and nasogastric tube is been removed. IMPRESSION: 1. Improving left perihilar infiltrate.
[2019-11-01] MEDS: SODIUM CHLORIDE 0.9% 1,000 ML IV SCH (08:36)
[2019-11-01] MEDS: amLODIPine 5 MG TAB PO SCH (08:37)
[2019-11-01] MEDS: PANTOPRAZOLE 40 MG TABLET PO SCH ×2 (08:37→16:46)
[2019-11-01] MEDS: INSULIN ASPART (NovoLOG) 100 UNIT/ML VIAL SQ SCH ×4 (08:37→22:11)
[2019-11-01] MEDS ORDERED: FUROSEMIDE 20 MG TAB PO STA (08:43)
[2019-11-01 12:07] LABS: Glucose,Whole Blood 128 mg/dL (75-99)
--- NOTE | 2019-11-01 13:02 | P.PN ---
Subjective Progress Note Date: 11/01/19 Principal diagnosis: Acute hypoxic respiratory failure secondary to aspiration of gastric secretions during colonoscopy. 74-year-old white female patient of Alcon Melgoza PA-C, who presented to the hospital on 10/30/2027 for elective colonoscopy as a part of surveillance or prior history of colon polyps. Patient's last colonoscopy was 5 years ago. Colonoscopy showed 5 mg ascending colon polyp status post removal by cold biopsy, and scattered left-sided diverticulosis. During the procedure patient developed some aspiration with secondary acute bronchospasm, and respiratory distress. Patient was hypoxic, very wheezy, anxious, and wheezy, breathing treatments were administered, IV magnesium sulfate was given, patient was placed on BiPAP support with pressures of 18 and 6, and FiO2 of 100%, we were called emergently to the postoperative phase 1 recovery area for urgent evaluation placement in the intensive care unit. Racemic epinephrine was administered, patient was given dose of IV Decadron 6 mg, patient continued to be extremely anxious, sitting up straight in bed, tolerating BiPAP poorly, we attempted to give the patient has small dose of Ativan to 0.5 mg for anxiety and poor compliance with BiPAP. Patient continued to be very dyspneic, bronchospastic, IPAP pressure was dropped down to 12 in hopes of better tolerance of BIPAP, however patient became very air hungry, and started desaturating, and his IPAP pressure was increased back up to 18, after some observation for improvement of her breathing, patient unfortunately did not show significant improvement in terms of acute bronchospasm and acute dyspnea, remain very tachypneic, very labored breathing, anxious, and the decision was made to proceed with intubation placement on mechanical ventilator. Patient was sedated with propofol, currently on 75 mics per kilo per minute, transferred to the intensive care unit, on vent settings of assist control mode of ventilation with a rate of 14, Tylenol 400, FiO2 of 50%, and PEEP of 5. Patient continued to be extremely restless and fighting the vent, when necessary doses of morphine have been added, blood gas was obtained after bone marrow were on the mechanical ventilator, showing pO2 176, pCO2 47, and pH of 7.30. Chest x-ray immediately following the colonoscopy showed patchy density in the left. Hilar and right infrahilar regions that could reflect underlying infiltrate. Chest x-ray following intubation showed ET tube with its distal tip at 1.6 cm from the stacey, G-tube in the appropriate position, and patchy perihilar infiltrate n oted on the left. Patient was given additional doses of IV steroids, additional sedation in the form of morphine in addition to Diprivan, empiric antibiotics in the form of Zosyn, nebulized bronchodilators. Of note patient has a history of COPD for which she follows with Dr. Salas in the office, last PFT from February, showed FEV1 of 51% of predicted and diffusion defect and DLCO of 43% of predicted. Maintenance COPD medications include Advair discus, Singulair, and Ventolin Patient was reevaluated today on 10/27/19, remains in the ICU, intubated and mechanically ventilated. Patient is on assist control rate of 18 tidal volume is 400 FiO2 is 35% and PEEP of 5 ABG showed a pO2 of 107 pCO2 of 40 pH of 7.40. Patient is on propofol at 25 mcg/kg/m, IV fluid is 0.9 normal saline at 50 mL per hour. Patient is not requiring any pressors. She is arousable, follows simple instructions, heart rate is sinus at 92 beats per minutes. Chest x-ray showed no evidence of significant abnormality, minimal left perihilar infiltrate noted. Right lower lobe atelectasis or infiltrate noted. Her labs were basically unremarkable. And a nasogastric tube is in place but she is not on enteral feeding get. After reviewing her chest x-ray and reviewing her labs, patient was switched to a pressure support of 10 and PEEP of 5. Placed on this mode for about half an hour, repeat ABG was excellent. Hence patient was extubated to a nasal cannula. In the meantime I kept her on bronchodilators and steroids. I will cut the dose of Solu-Medrol to 40 mg IV push every 8 hours, and I will continue antibiotics/Zosyn possibly switch her to Augmentin tomorrow. ABG on CPAP showed a pO2 of 116 pCO2 of 40 pH of 7.40. WBC count is 14.9 hemoglobin is 11.5. Index was are normal renal profile is normal. The patient is seen today 11/01/2019 in follow-up in the intensive care unit. She is currently awake and alert in no acute distress. She was extubated yesterday. She is still somewhat bronchospastic and wheezy today. He is maintaining good O2 saturations in the 90s on 2 L/m per nasal cannula. Afebrile. Hemodynamically stable. White count 15.3. Hemoglobin 10.8. Sodium 136. Potassium 4.4. Creatinine 0.64. She is continued on DuoNeb inhalations, Pulmicort and Perforomist inhalations, IV Solu-Medrol. Antibiotics in the form of Zosyn. Objective - Vital Signs Vital signs: Vital Signs Temp 99.0 F 11/01/19 08:00 Pulse 89 11/01/19 12:01 Resp 24 11/01/19 09:00 BP 127/59 11/01/19 09:00 Pulse Ox 99 11/01/19 09:00 Intake & Output 10/31/19 11/01/19 11/01/19 18:59 06:59 18:59 Intake Total 1222.459 650 275 Output Total 533 675 410 Balance 689.459 -25 -135 Weight 60.6 kg Intake: IV 569 400 275 Normal Saline Pressure 9 Bag Piperacillin-Tazobactam 3 200 100 100 .375 gm In Sodium Chloride 0.9% 100 ml @ 25 mls/hr IVPB Q8HR [facility] Rx# :[id number] Sodium Chloride 0.9% 1, 360 300 175 000 ml @ 25 mls/hr IV . Q24H [facility] Rx#:[id number] Intake, IV Titration 53.459 Amount propofoL 1,000 mg In 53.459 Empty Bag 1 bag @ Titrate IV .Q0M [facility] Rx#: [id number] Oral 600 250 Output: Urine 533 675 410 Other: Voiding Method Indwelling Catheter Indwelling Catheter Indwelling Catheter ABP, PAP, CO, CI - Last Documented Arterial Blood Pressure 149/46 - Exam GENERAL EXAM: Alert, pleasant 74-year-old female patient, on 2 L nasal cannula, comfortable in no apparent distress. HEAD: Normocephalic. EYES: Normal reaction of pupils, equal size. NOSE: Clear with pink turbinates. THROAT: No erythema or exudates. NECK: No masses, no JVD. CHEST: No chest wall deformity. LUNGS: Equal air entry with bilateral end expiratory wheeze. CVS: S1 and S2 normal with no audible murmur, regular rhythm. ABDOMEN: No hepatosplenomegaly, normal bowel sounds, no guarding or rigidity. SPINE: No scoliosis or deformity SKIN: No rashes CENTRAL NERVOUS SYSTEM: No focal deficits, tone is normal in all 4 extremities. EXTREMITIES: There is no peripheral edema. No clubbing, no cyanosis. Peripheral pulses are intact. - Labs CBC & Chem 7: 11/01/19 03:29 11/01/19 03:29 Labs: Abnormal Lab Results - Last 24 Hours (Table) 10/31/19 10/31/19 11/01/19 Range/Units 16:36 20:56 03:29 WBC 15.3 H (3.8-10.6) k/uL RBC 3.55 L (3.80-5.40) m/uL Hgb 10.8 L (11.4-16.0) gm/dL Neutrophils # 14.4 H (1.3-7.7) k/uL Lymphocytes # 0.5 L (1.0-4.8) k/uL Sodium (137-145) mmol/L Glucose (74-99) mg/dL POC Glucose (mg/dL) 133 H 153 H (75-99) mg/dL 11/01/19 11/01/19 11/01/19 Range/Units 03:29 07:14 12:05 WBC (3.8-10.6) k/uL RBC (3.80-5.40) m/uL Hgb (11.4-16.0) gm/dL Neutrophils # (1.3-7.7) k/uL Lymphocytes # (1.0-4.8) k/uL Sodium 136 L (137-145) mmol/L Glucose 143 H (74-99) mg/dL POC Glucose (mg/dL) 139 H 128 H (75-99) mg/dL Assessment and Plan Assessment: Acute hypoxic respiratory failure secondary to aspiration of gastric secretions during colonoscopy, unexpected, patient developed severe bronchospasm requiring intubation and mechanical ventilation as the patient failed to BiPAP and multiple doses of updrafts, Vaponefrin, and Decadron as well as Solu-Medrol and magnesium sulfate. Improved currently on 2 L nasal cannula Elective colonoscopy on 10/30/19, history of polyps. Advanced stage COPD, Gold stage III FEV1 is 51% . Acute exacerbation of COPD, exacerbated by her aspiration of gastric secretions. Mild aspiration pneumonia is suspected on chest x-ray. History of severe GERD. Could be a major concerning factor to her aspiration. Plan: The patient was seen and evaluated by Dr. Weir Still somewhat bronchospastic and wheezy. Continue bronchodilators, IV Solu-Medrol, Zosyn Transfer to regular medical floor today We'll continue to follow I, the cosigning physician, performed a history & physical examination of the patient. Lungs sounds with bilateral end expiratory wheeze Maintaining good O2 saturations in the 90s on 2 L/m per nasal cannula. I discussed the assessment and plan of care with my nurse practitioner, Laura Schaefer. I attest to the above note as dictated by her.
[2019-11-01 16:42] LABS: Glucose,Whole Blood 124 mg/dL (75-99)
[2019-11-01] MEDS: methylPREDNISolone SOD SUCCI 125 MG/2 ML VIAL IV SCH ×2 (16:46→23:54)
[2019-11-01 21:44] LABS: Glucose,Whole Blood 164 mg/dL (75-99)
--- NOTE | 2019-11-01 23:19 | P.PN ---
Subjective Progress Note Date: 10/31/19 Principal diagnosis: Acute hypoxic respiratory failure due to Acute bronchospasm and possible aspiration during colonoscopy procedure. Patient is a 44-year-old female with a known history of COPD and family history of colon cancer in both parents and a prior history of colon polyps, previous history of smoking was initially scheduled for elective colonoscopy for cancer surveillance. Patient was found to have 5 mm ascending colon polyp status post removal by cold biopsy and also found to have scattered left-sided diverticulosis. Postprocedure patient became hypoxic and wheezy and went into respiratory failure. Patient was placed BiPAP in the recovery area. Patient wa s given a dose of epinephrine and IV Decadron 6 mg for acute bronchospasm. Patient became very anxious and also given 0.5 mg of Ativan. Due to continued dyspnea patient was eventually intubated and transferred to MICU. Patient was very restless and fighting over the vent. Patient was given a dose of morphine and was placed on Versed drip. ABG showed pH of 7.33, PCO2 47, PO2 176 and bicarb is 26 Lab data showed WBC 15.8, hemoglobin 13.3 and platelets 325 Electrolytes within normal limits. Blood sugar was 316 Chest x-ray showed patchy density left perihilar and right infrahilar region may reflect underlying infiltrate. Correlate clinically and progress studies are recommended. 10/31/2019 Patient was extubated today. Currently sitting on the chair comfortably. Still requiring 3 L oxygen via nasal cannula. Patient is not on home oxygen. Bilateral diffuse wheezing is present. Chest x-ray showed no evidence of significant abnormality. Minimal left perihilar infiltrate noted. Right lower lobe atelectasis or infiltrate noted. Patient is currently on antibiotics in form of Zosyn. Laboratory data showed WBC 14.9 and hemoglobin 11.5 and platelet count 239 BUN 15 and creatinine 0.66 A1c level is 5.6 Current medications reviewed. Objective - Vital Signs Vital signs: Vital Signs Temp 98.3 F 10/31/19 04:00 Pulse 88 10/31/19 08:06 Resp 18 10/31/19 07:00 BP 96/47 10/30/19 16:00 Pulse Ox 99 10/31/19 07:00 Intake & Output 10/30/19 10/31/19 10/31/19 18:59 06:59 18:59 Intake Total 1356.964 876.000 106.459 Output Total 270 566 55 Balance 1086.964 310.000 51.459 Weight 57.1 kg 62.8 kg Intake: IV 809 686 53 Normal Saline Pressure 9 36 3 Bag Piperacillin-Tazobactam 3 100 .375 gm In Sodium Chloride 0.9% 100 ml @ 25 mls/hr IVPB Q8HR [facility] Rx# :[id number] Sodium Chloride 0.9% 1, 550 50 000 ml @ 50 mls/hr IV . Q20H [facility] Rx#:[id number] Intake, IV Titration 547.964 150.000 53.459 Amount Piperacillin-Tazobactam 3 100 .375 gm In Sodium Chloride 0.9% 100 ml @ 25 mls/hr IVPB Q8HR [facility] Rx# :[id number] Sodium Chloride 0.9% 1, 300 50 000 ml @ 50 mls/hr IV . Q20H [facility] Rx#:[id number] propofoL 1,000 mg In 147.964 100.000 53.459 Empty Bag 1 bag @ Titrate IV .Q0M [facility] Rx#: [id number] Other 40 Output: Gastric Drainage 100 Urine 270 466 55 Other: Voiding Method Indwelling Catheter Indwelling Catheter ABP, PAP, CO, CI - Last Documented Arterial Blood Pressure 121/40 - Exam PHYSICAL EXAMINATION: Patient is lying in the bed comfortably,Awake alert and oriented x3.. HEENT: Normocephalic. Neck is supple. Pupils reactive. Nostrils clear. Oral cavity is moist. Ears reveal no drainage. Neck reveals no JVD, carotid bruits, or thyromegaly. CHEST EXAMINATION: Trachea is central. Symmetrical expansion.Bilateral expiratory wheezing otherwise no crackles. Bilateral air entry present. . CARDIAC: Normal S1, S2 with no gallops. No murmurs ABDOMEN: Soft. Bowel sounds normal. No organomegaly. No abdominal bruits. Extremities: reveal no edema. No clubbing or cyanosis Neurologically Patient is currently sedated and intubated.. No focal deficits noted Skin: No rash or skin lesions. Psychiatric: Cooperative. Nonsuicidal. Musculoskeletal: No joint swelling or deformity. - Labs CBC & Chem 7: 11/01/19 03:29 11/01/19 03:29 Labs: Abnormal Lab Results - Last 24 Hours (Table) 10/30/19 10/30/19 10/30/19 Range/Units 12:32 14:20 14:34 WBC 15.8 H (3.8-10.6) k/uL RBC (3.80-5.40) m/uL Neutrophils # 14.8 H (1.3-7.7) k/uL Lymphocytes # 0.5 L (1.0-4.8) k/uL ABG pH 7.33 L (7.35-7.45) ABG pCO2 47 H (35-45) mmHg ABG pO2 176 H (83-108) mmHg ABG Total CO2 26 H (19-24) mmol/L ABG O2 Saturation 99.2 H (94-97) % Sodium (137-145) mmol/L Glucose (74-99) mg/dL POC Glucose (mg/dL) 316 H (75-99) mg/dL Magnesium (1.6-2.3) mg/dL Total Protein (6.3-8.2) g/dL 10/30/19 10/30/19 10/30/19 Range/Units 14:34 14:34 15:08 WBC (3.8-10.6) k/uL RBC (3.80-5.40) m/uL Neutrophils # (1.3-7.7) k/uL Lymphocytes # (1.0-4.8) k/uL ABG pH (7.35-7.45) ABG pCO2 (35-45) mmHg ABG pO2 (83-108) mmHg ABG Total CO2 (19-24) mmol/L ABG O2 Saturation (94-97) % Sodium 135 L (137-145) mmol/L Glucose 217 H (74-99) mg/dL POC Glucose (mg/dL) 222 H (75-99) mg/dL Magnesium 2.7 H (1.6-2.3) mg/dL Total Protein 6.2 L (6.3-8.2) g/dL 10/30/19 10/30/19 10/31/19 Range/Units 18:39 23:49 04:05 WBC 14.9 H (3.8-10.6) k/uL RBC 3.71 L (3.80-5.40) m/uL Neutrophils # 14.2 H (1.3-7.7) k/uL Lymphocytes # 0.5 L (1.0-4.8) k/uL ABG pH (7.35-7.45) ABG pCO2 (35-45) mmHg ABG pO2 (83-108) mmHg ABG Total CO2 (19-24) mmol/L ABG O2 Saturation (94-97) % Sodium (137-145) mmol/L Glucose (74-99) mg/dL POC Glucose (mg/dL) 140 H 157 H (75-99) mg/dL Magnesium (1.6-2.3) mg/dL Total Protein (6.3-8.2) g/dL 10/31/19 10/31/19 10/31/19 Range/Units 04:05 05:57 07:14 WBC (3.8-10.6) k/uL RBC (3.80-5.40) m/uL Neutrophils # (1.3-7.7) k/uL Lymphocytes # (1.0-4.8) k/uL ABG pH (7.35-7.45) ABG pCO2 (35-45) mmHg ABG pO2 (83-108) mmHg ABG Total CO2 26 H (19-24) mmol/L ABG O2 Saturation 98.2 H (94-97) % Sodium 134 L (137-145) mmol/L Glucose 193 H (74-99) mg/dL POC Glucose (mg/dL) 187 H (75-99) mg/dL Magnesium (1.6-2.3) mg/dL Total Protein (6.3-8.2) g/dL 10/31/19 Range/Units 09:05 WBC (3.8-10.6) k/uL RBC (3.80-5.40) m/uL Neutrophils # (1.3-7.7) k/uL Lymphocytes # (1.0-4.8) k/uL ABG pH (7.35-7.45) ABG pCO2 (35-45) mmHg ABG pO2 116 H (83-108) mmHg ABG Total CO2 26 H (19-24) mmol/L ABG O2 Saturation 98.5 H (94-97) % Sodium (137-145) mmol/L Glucose (74-99) mg/dL POC Glucose (mg/dL) (75-99) mg/dL Magnesium (1.6-2.3) mg/dL Total Protein (6.3-8.2) g/dL Assessment and Plan Assessment: Acute hypoxic respiratory failure due to Acute bronchospasm and possible aspiration during colonoscopy procedure. Elective colonoscopy for cancer surveillance due to history of polyps. Advanced COPD History of multiple nonspecific pulmonary nodules on follow-up with pulmonary in the clinic GERD Previous history of smoking DVT prophylaxis. Plan: Patient is currently sedated and on mechanical ventilation. Continued on IV Solu-Medrol bronchodilators and empiric antibiotics. Continue to monitor closely and pulmonary is on board. Possible extubation in the next 24 hours. Further recommendations based on the clinical course. Time with Patient: Greater than 30
--- NOTE | 2019-11-01 23:21 | P.PN ---
Subjective Progress Note Date: 11/01/19 Principal diagnosis: Acute hypoxic respiratory failure due to Acute bronchospasm and possible aspiration during colonoscopy procedure. Patient is a 44-year-old female with a known history of COPD and family history of colon cancer in both parents and a prior history of colon polyps, previous history of smoking was initially scheduled for elective colonoscopy for cancer surveillance. Patient was found to have 5 mm ascending colon polyp status post removal by cold biopsy and also found to have scattered left-sided diverticulosis. Postprocedure patient became hypoxic and wheezy and went into respiratory failure. Patient was placed BiPAP in the recovery area. Patient wa s given a dose of epinephrine and IV Decadron 6 mg for acute bronchospasm. Patient became very anxious and also given 0.5 mg of Ativan. Due to continued dyspnea patient was eventually intubated and transferred to MICU. Patient was very restless and fighting over the vent. Patient was given a dose of morphine and was placed on Versed drip. ABG showed pH of 7.33, PCO2 47, PO2 176 and bicarb is 26 Lab data showed WBC 15.8, hemoglobin 13.3 and platelets 325 Electrolytes within normal limits. Blood sugar was 316 Chest x-ray showed patchy density left perihilar and right infrahilar region may reflect underlying infiltrate. Correlate clinically and progress studies are recommended. 10/31/2019 Patient was extubated today. Currently sitting on the chair comfortably. Still requiring 3 L oxygen via nasal cannula. Patient is not on home oxygen. Bilateral diffuse wheezing is present. Chest x-ray showed no evidence of significant abnormality. Minimal left perihilar infiltrate noted. Right lower lobe atelectasis or infiltrate noted. Patient is currently on antibiotics in form of Zosyn. Laboratory data showed WBC 14.9 and hemoglobin 11.5 and platelet count 239 BUN 15 and creatinine 0.66 A1c level is 5.6 11/01/2019 Patient is currently awake alert oriented x3. Sitting in the chair comfortably. Overall air entry is much improved. Still having expiratory wheezing. Currently on oxygen at 2 L via nasal cannula. Continued on IV steroids and duo nebs and antibiotics. Laboratory data showed WBC 15.3 Hemoglobin 10.8 Lymphocytes 0.5 and absolute neutrophils 14.4 Patient is being transferred to medical floor today. Current medications reviewed. Objective - Vital Signs Vital signs: Vital Signs Temp 98.3 F 11/01/19 15:00 Pulse 91 11/01/19 20:46 Resp 16 11/01/19 15:00 BP 127/57 11/01/19 15:00 Pulse Ox 99 11/01/19 15:04 Intake & Output 11/01/19 11/01/19 11/02/19 06:59 18:59 06:59 Intake Total 650 380 Output Total 675 1100 Balance -25 -720 Weight 60.6 kg Intake: IV 400 380 Piperacillin-Tazobactam 3 100 200 .375 gm In Sodium Chloride 0.9% 100 ml @ 25 mls/hr IVPB Q8HR [facility] Rx# :[id number] Sodium Chloride 0.9% 1, 300 180 000 ml @ 25 mls/hr IV . Q24H [facility] Rx#:[id number] Oral 250 Output: Urine 675 1100 Other: Voiding Method Indwelling Catheter Indwelling Catheter ABP, PAP, CO, CI - Last Documented Arterial Blood Pressure 149/46 - Exam PHYSICAL EXAMINATION: Patient is lying in the bed comfortably,Awake alert and oriented x3.. HEENT: Normocephalic. Neck is supple. Pupils reactive. Nostrils clear. Oral cavity is moist. Ears reveal no drainage. Neck reveals no JVD, carotid bruits, or thyromegaly. CHEST EXAMINATION: Trachea is central. Symmetrical expansion.Bilateral expiratory wheezing otherwise no crackles. Bilateral air entry present. . CARDIAC: Normal S1, S2 with no gallops. No murmurs ABDOMEN: Soft. Bowel sounds normal. No organomegaly. No abdominal bruits. Extremities: reveal no edema. No clubbing or cyanosis Neurologically Patient is currently sedated and intubated.. No focal deficits noted Skin: No rash or skin lesions. Psychiatric: Cooperative. Nonsuicidal. Musculoskeletal: No joint swelling or deformity. - Labs CBC & Chem 7: 11/01/19 03:29 11/01/19 03:29 Labs: Abnormal Lab Results - Last 24 Hours (Table) 11/01/19 11/01/19 11/01/19 Range/Units 03:29 03:29 07:14 WBC 15.3 H (3.8-10.6) k/uL RBC 3.55 L (3.80-5.40) m/uL Hgb 10.8 L (11.4-16.0) gm/dL Neutrophils # 14.4 H (1.3-7.7) k/uL Lymphocytes # 0.5 L (1.0-4.8) k/uL Sodium 136 L (137-145) mmol/L Glucose 143 H (74-99) mg/dL POC Glucose (mg/dL) 139 H (75-99) mg/dL 11/01/19 11/01/19 Range/Units 12:05 16:40 WBC (3.8-10.6) k/uL RBC (3.80-5.40) m/uL Hgb (11.4-16.0) gm/dL Neutrophils # (1.3-7.7) k/uL Lymphocytes # (1.0-4.8) k/uL Sodium (137-145) mmol/L Glucose (74-99) mg/dL POC Glucose (mg/dL) 128 H 124 H (75-99) mg/dL Assessment and Plan Assessment: Acute hypoxic respiratory failure due to Acute bronchospasm and possible aspiration during colonoscopy procedure. Elective colonoscopy for cancer surveillance due to history of polyps. Advanced COPD History of multiple nonspecific pulmonary nodules on follow-up with pulmonary in the clinic GERD Previous history of smoking DVT prophylaxis. Plan: Patient is is extubated. Continued on IV Solu-Medrol bronchodilators and empiric antibiotics. Continue to monitor closely and pulmonary is on board.Continue with oxygen therapy. Further recommendations based on the clinical course. Time with Patient: Greater than 30
[2019-11-02] MEDS: SODIUM CHLORIDE 0.9% 1,000 ML IV SCH ×2 (01:41→21:18)
[2019-11-02] MEDS: IPRATROPIUM-ALBUTEROL 3 ML NEB INHALATION SCH ×6 (03:10→23:47)
[2019-11-02] MEDS: BENZOCAINE/MENTHOL LOZENG 1 EACH LOZENGE MUCOUS MEM PRN (06:23)
[2019-11-02 07:13] LABS: Glucose,Whole Blood 163 mg/dL (75-99)
[2019-11-02] MEDS: FORMOTEROL FUMARATE 20 MCG/2 ML NEBU INHALATION SCH ×2 (07:52→20:22)
[2019-11-02] MEDS: BUDESONIDE 1 MG/2 ML NEBU INHALATION SCH ×2 (07:52→21:09)
[2019-11-02] MEDS: INSULIN ASPART (NovoLOG) 100 UNIT/ML VIAL SQ SCH ×4 (08:03→20:53)
[2019-11-02] MEDS: PANTOPRAZOLE 40 MG TABLET PO SCH ×2 (08:04→17:10)
[2019-11-02] MEDS: HEPARIN SODIUM,PORCINE 5,000 UNIT/ML 1 ML VIAL SQ SCH ×3 (08:04→23:55)
[2019-11-02] MEDS: amLODIPine 5 MG TAB PO SCH (08:04)
[2019-11-02] MEDS: methylPREDNISolone SOD SUCCI 125 MG/2 ML VIAL IV SCH ×3 (08:04→23:55)
[2019-11-02] MEDS: PIPERACILLIN-TAZOBACTAM 3.375 GM in SODIUM CHLORIDE 0.9% 100 ML IVPB SCH ×3 (08:05→23:55)
[2019-11-02 11:32] LABS: Glucose,Whole Blood 147 mg/dL (75-99)
--- NOTE | 2019-11-02 12:47 | P.PN ---
Subjective Progress Note Date: 11/02/19 Principal diagnosis: Acute hypoxic respiratory failure secondary to aspiration of gastric secretions during colonoscopy. 74-year-old white female patient of Alcon Melgoza PA-C, who presented to the hospital on 10/30/2027 for elective colonoscopy as a part of surveillance or prior history of colon polyps. Patient's last colonoscopy was 5 years ago. Colonoscopy showed 5 mg ascending colon polyp status post removal by cold biopsy, and scattered left-sided diverticulosis. During the procedure patient developed some aspiration with secondary acute bronchospasm, and respiratory distress. Patient was hypoxic, very wheezy, anxious, and wheezy, breathing treatments were administered, IV magnesium sulfate was given, patient was placed on BiPAP support with pressures of 18 and 6, and FiO2 of 100%, we were called emergently to the postoperative phase 1 recovery area for urgent evaluation placement in the intensive care unit. Racemic epinephrine was administered, patient was given dose of IV Decadron 6 mg, patient continued to be extremely anxious, sitting up straight in bed, tolerating BiPAP poorly, we attempted to give the patient has small dose of Ativan to 0.5 mg for anxiety and poor compliance with BiPAP. Patient continued to be very dyspneic, bronchospastic, IPAP pressure was dropped down to 12 in hopes of better tolerance of BIPAP, however patient became very air hungry, and started desaturating, and his IPAP pressure was increased back up to 18, after some observation for improvement of her breathing, patient unfortunately did not show significant improvement in terms of acute bronchospasm and acute dyspnea, remain very tachypneic, very labored breathing, anxious, and the decision was made to proceed with intubation placement on mechanical ventilator. Patient was sedated with propofol, currently on 75 mics per kilo per minute, transferred to the intensive care unit, on vent settings of assist control mode of ventilation with a rate of 14, Tylenol 400, FiO2 of 50%, and PEEP of 5. Patient continued to be extremely restless and fighting the vent, when necessary doses of morphine have been added, blood gas was obtained after bone marrow were on the mechanical ventilator, showing pO2 176, pCO2 47, and pH of 7.30. Chest x-ray immediately following the colonoscopy showed patchy density in the left. Hilar and right infrahilar regions that could reflect underlying infiltrate. Chest x-ray following intubation showed ET tube with its distal tip at 1.6 cm from the stacey, G-tube in the appropriate position, and patchy perihilar infiltrate n oted on the left. Patient was given additional doses of IV steroids, additional sedation in the form of morphine in addition to Diprivan, empiric antibiotics in the form of Zosyn, nebulized bronchodilators. Of note patient has a history of COPD for which she follows with Dr. Salas in the office, last PFT from February, showed FEV1 of 51% of predicted and diffusion defect and DLCO of 43% of predicted. Maintenance COPD medications include Advair discus, Singulair, and Ventolin Patient was reevaluated today on 10/27/19, remains in the ICU, intubated and mechanically ventilated. Patient is on assist control rate of 18 tidal volume is 400 FiO2 is 35% and PEEP of 5 ABG showed a pO2 of 107 pCO2 of 40 pH of 7.40. Patient is on propofol at 25 mcg/kg/m, IV fluid is 0.9 normal saline at 50 mL per hour. Patient is not requiring any pressors. She is arousable, follows simple instructions, heart rate is sinus at 92 beats per minutes. Chest x-ray showed no evidence of significant abnormality, minimal left perihilar infiltrate noted. Right lower lobe atelectasis or infiltrate noted. Her labs were basically unremarkable. And a nasogastric tube is in place but she is not on enteral feeding get. After reviewing her chest x-ray and reviewing her labs, patient was switched to a pressure support of 10 and PEEP of 5. Placed on this mode for about half an hour, repeat ABG was excellent. Hence patient was extubated to a nasal cannula. In the meantime I kept her on bronchodilators and steroids. I will cut the dose of Solu-Medrol to 40 mg IV push every 8 hours, and I will continue antibiotics/Zosyn possibly switch her to Augmentin tomorrow. ABG on CPAP showed a pO2 of 116 pCO2 of 40 pH of 7.40. WBC count is 14.9 hemoglobin is 11.5. Index was are normal renal profile is normal. The patient is seen today 11/01/2019 in follow-up in the intensive care unit. She is currently awake and alert in no acute distress. She was extubated yesterday. She is still somewhat bronchospastic and wheezy today. He is maintaining good O2 saturations in the 90s on 2 L/m per nasal cannula. Afebrile. Hemodynamically stable. White count 15.3. Hemoglobin 10.8. Sodium 136. Potassium 4.4. Creatinine 0.64. She is continued on DuoNeb inhalations, Pulmicort and Perforomist inhalations, IV Solu-Medrol. Antibiotics in the form of Zosyn. The patient is seen today 11/02/2019 in follow-up on the regular medical floor. She is sitting up in bed. Awake and alert in no acute distress. She is breathing easier today compared to yesterday. Blood glucose 147. He is continued on DuoNeb inhalations, Pulmicort and Perforomist inhalations, IV Solu- Medrol. Antibiotics in the form of Zosyn. Objective - Vital Signs Vital signs: Vital Signs Temp 98.1 F 11/02/19 07:00 Pulse 91 11/02/19 11:48 Resp 18 11/02/19 07:00 BP 127/68 11/02/19 07:00 Pulse Ox 94 L 11/02/19 07:53 Intake & Output 11/01/19 11/02/19 11/02/19 18:59 06:59 18:59 Intake Total 380 200 Output Total 1100 500 Balance -720 -300 Weight 64 kg Intake: IV 380 Piperacillin-Tazobactam 3 200 .375 gm In Sodium Chloride 0.9% 100 ml @ 25 mls/hr IVPB Q8HR [facility] Rx# :[id number] Sodium Chloride 0.9% 1, 180 000 ml @ 25 mls/hr IV . Q24H [facility] Rx#:[id number] Oral 200 Output: Urine 1100 500 Other: Voiding Method Indwelling Catheter Indwelling Catheter Indwelling Catheter ABP, PAP, CO, CI - Last Documented Arterial Blood Pressure 149/46 - Exam GENERAL EXAM: Alert, pleasant 74-year-old female patient, on 2 L nasal cannula, comfortable in no apparent distress. HEAD: Normocephalic. EYES: Normal reaction of pupils, equal size. NOSE: Clear with pink turbinates. THROAT: No erythema or exudates. NECK: No masses, no JVD. CHEST: No chest wall deformity. LUNGS: Equal air entry with faint end expiratory wheeze. CVS: S1 and S2 normal with no audible murmur, regular rhythm. ABDOMEN: No hepatosplenomegaly, normal bowel sounds, no guarding or rigidity. SPINE: No scoliosis or deformity SKIN: No rashes CENTRAL NERVOUS SYSTEM: No focal deficits, tone is normal in all 4 extremities. EXTREMITIES: There is no peripheral edema. No clubbing, no cyanosis. Peripheral pulses are intact. - Labs CBC & Chem 7: 11/01/19 03:29 11/01/19 03:29 Labs: Abnormal Lab Results - Last 24 Hours (Table) 11/01/19 11/01/19 11/02/19 Range/Units 16:40 21:42 07:12 POC Glucose (mg/dL) 124 H 164 H 163 H (75-99) mg/dL 11/02/19 Range/Units 11:30 POC Glucose (mg/dL) 147 H (75-99) mg/dL Assessment and Plan Assessment: Acute hypoxic respiratory failure secondary to aspiration of gastric secretions during colonoscopy, unexpected, patient developed severe bronchospasm requiring intubation and mechanical ventilation as the patient failed to BiPAP and multiple doses of updrafts, Vaponefrin, and Decadron as well as Solu-Medrol and magnesium sulfate. Improved currently on 2 L nasal cannula Elective colonoscopy on 10/30/19, history of polyps. Advanced stage COPD, Gold stage III FEV1 is 51% . Acute exacerbation of COPD, exacerbated by her aspiration of gastric secretions. Mild aspiration pneumonia is suspected on chest x-ray. History of severe GERD. Could be a major concerning factor to her aspiration. Plan: The patient was seen and evaluated by Dr. Weir She is cleared for discharge from the pulmonary standpoint Complete course of prednisone taper Complete a course of antibiotics in the form of Augmentin Continue DuoNeb's, Advair, albuterol Follow-up in our office with Dr. Weir in 1 week I, the cosigning physician, performed a history & physical examination of the patient. Lungs sounds with bilateral faint end expiratory wheeze. Maintaining good O2 saturations in the 90s on 2 L/m per nasal cannula. I discussed the assessment and plan of care with my nurse practitioner, Laura Schaefer. I attest to the above note as dictated by her.
[2019-11-02 16:38] LABS: Glucose,Whole Blood 104 mg/dL (75-99)
[2019-11-02 20:33] LABS: Glucose,Whole Blood 128 mg/dL (75-99)
[2019-11-03] MEDS: IPRATROPIUM-ALBUTEROL 3 ML NEB INHALATION SCH ×4 (03:56→16:02)
[2019-11-03 07:19] LABS: Glucose,Whole Blood 145 mg/dL (75-99)
[2019-11-03] MEDS: HEPARIN SODIUM,PORCINE 5,000 UNIT/ML 1 ML VIAL SQ SCH ×2 (07:48→17:40)
[2019-11-03] MEDS: amLODIPine 5 MG TAB PO SCH (07:50)
[2019-11-03] MEDS: methylPREDNISolone SOD SUCCI 125 MG/2 ML VIAL IV SCH ×2 (07:50→17:40)
[2019-11-03] MEDS: PIPERACILLIN-TAZOBACTAM 3.375 GM in SODIUM CHLORIDE 0.9% 100 ML IVPB SCH ×2 (07:50→17:40)
[2019-11-03] MEDS: PANTOPRAZOLE 40 MG TABLET PO SCH ×2 (07:50→17:40)
[2019-11-03] MEDS: INSULIN ASPART (NovoLOG) 100 UNIT/ML VIAL SQ SCH ×3 (07:51→17:40)
[2019-11-03] MEDS: FORMOTEROL FUMARATE 20 MCG/2 ML NEBU INHALATION SCH (08:40)
[2019-11-03] MEDS: BUDESONIDE 1 MG/2 ML NEBU INHALATION SCH (08:40)
--- NOTE | 2019-11-03 11:05 | P.PN ---
Subjective Progress Note Date: 11/02/19 Principal diagnosis: Acute hypoxic respiratory failure due to Acute bronchospasm and possible aspiration during colonoscopy procedure. Patient is a 44-year-old female with a known history of COPD and family history of colon cancer in both parents and a prior history of colon polyps, previous history of smoking was initially scheduled for elective colonoscopy for cancer surveillance. Patient was found to have 5 mm ascending colon polyp status post removal by cold biopsy and also found to have scattered left-sided diverticulosis. Postprocedure patient became hypoxic and wheezy and went into respiratory failure. Patient was placed BiPAP in the recovery area. Patient wa s given a dose of epinephrine and IV Decadron 6 mg for acute bronchospasm. Patient became very anxious and also given 0.5 mg of Ativan. Due to continued dyspnea patient was eventually intubated and transferred to MICU. Patient was very restless and fighting over the vent. Patient was given a dose of morphine and was placed on Versed drip. ABG showed pH of 7.33, PCO2 47, PO2 176 and bicarb is 26 Lab data showed WBC 15.8, hemoglobin 13.3 and platelets 325 Electrolytes within normal limits. Blood sugar was 316 Chest x-ray showed patchy density left perihilar and right infrahilar region may reflect underlying infiltrate. Correlate clinically and progress studies are recommended. 10/31/2019 Patient was extubated today. Currently sitting on the chair comfortably. Still requiring 3 L oxygen via nasal cannula. Patient is not on home oxygen. Bilateral diffuse wheezing is present. Chest x-ray showed no evidence of significant abnormality. Minimal left perihilar infiltrate noted. Right lower lobe atelectasis or infiltrate noted. Patient is currently on antibiotics in form of Zosyn. Laboratory data showed WBC 14.9 and hemoglobin 11.5 and platelet count 239 BUN 15 and creatinine 0.66 A1c level is 5.6 11/01/2019 Patient is currently awake alert oriented x3. Sitting in the chair comfortably. Overall air entry is much improved. Still having expiratory wheezing. Currently on oxygen at 2 L via nasal cannula. Continued on IV steroids and duo nebs and antibiotics. Laboratory data showed WBC 15.3 Hemoglobin 10.8 Lymphocytes 0.5 and absolute neutrophils 14.4 Patient is being transferred to medical floor today. 11/02/2019 Patient is currently sitting the chair comfortably. Breathing is much easier and still having expiratory wheeze and prolonged expiration. Bilateral air entry is much improved. Otherwise patient is still requiring oxygen via nasal cannula at 2 L. We will continue with IV Solu-Medrol and duo nebs and antibiotics in the form of Zosyn. Will arrange for home oxygen and oxygen evaluation. Anticipate discharge in the next 24 hours with more clinical improvement. And medications reviewed. Objective - Vital Signs Vital signs: Vital Signs Temp 98.3 F 11/02/19 19:16 Pulse 84 11/02/19 20:45 Resp 15 11/02/19 19:16 BP 135/58 11/02/19 19:16 Pulse Ox 98 11/02/19 19:16 Intake & Output 11/02/19 11/02/19 11/03/19 06:59 18:59 06:59 Intake Total 200 Output Total 500 300 Balance -300 -300 Weight 64 kg Intake: Oral 200 Output: Urine 500 300 Other: Voiding Method Indwelling Catheter Indwelling Catheter ABP, PAP, CO, CI - Last Documented Arterial Blood Pressure 149/46 - Exam PHYSICAL EXAMINATION: Patient is lying in the bed comfortably,Awake alert and oriented x3.. HEENT: Normocephalic. Neck is supple. Pupils reactive. Nostrils clear. Oral cavity is moist. Ears reveal no drainage. Neck reveals no JVD, carotid bruits, or thyromegaly. CHEST EXAMINATION: Trachea is central. Symmetrical expansion.Bilateral expiratory wheezing otherwise no crackles. Bilateral air entry present. . CARDIAC: Normal S1, S2 with no gallops. No murmurs ABDOMEN: Soft. Bowel sounds normal. No organomegaly. No abdominal bruits. Extremities: reveal no edema. No clubbing or cyanosis Neurologically Patient is currently sedated and intubated.. No focal deficits noted Skin: No rash or skin lesions. Psychiatric: Cooperative. Nonsuicidal. Musculoskeletal: No joint swelling or deformity. - Labs CBC & Chem 7: 11/01/19 03:29 11/01/19 03:29 Labs: Abnormal Lab Results - Last 24 Hours (Table) 11/01/19 11/02/19 11/02/19 Range/Units 21:42 07:12 11:30 POC Glucose (mg/dL) 164 H 163 H 147 H (75-99) mg/dL 11/02/19 11/02/19 Range/Units 16:37 20:31 POC Glucose (mg/dL) 104 H 128 H (75-99) mg/dL Assessment and Plan Assessment: Acute hypoxic respiratory failure due to Acute bronchospasm and possible aspiration during colonoscopy procedure. Elective colonoscopy for cancer surveillance due to history of polyps. Advanced COPD History of multiple nonspecific pulmonary nodules on follow-up with pulmonary in the clinic GERD Previous history of smoking DVT prophylaxis. Plan: Patient is is extubated. Continued on IV Solu-Medrol bronchodilators and empiric antibiotics. Continue to monitor closely and pulmonary is on board.Continue with oxygen therapy. Home oxygen evaluation. Further recommendations based on the clinical course. Time with Patient: Greater than 30
[2019-11-03 11:47] LABS: Glucose,Whole Blood 153 mg/dL (75-99)
[2019-11-03 13:18] LABS: Basophils % (A) 0 %; Eosinophils % (A) 0 %; HCT 36.7 % (34.0-46.0); HGB 11.7 gm/dL (11.4-16.0); Lymphocytes # (A) 0.6 k/uL (1.0-4.8); Lymphocytes % (A) 6 %; MCH 31.4 pg (25.0-35.0); Mean Platelet Volume 7.3; Monocytes # (A) 0.4 k/uL (0-1.0); Monocytes % (A) 4 %; Neutrophils # (A) 9.1 k/uL (1.3-7.7); Neutrophils % (A) 89 %; Platelet Count 256 k/uL (150-450); RBC 3.74 m/uL (3.80-5.40); WBC 10.2 k/uL (3.8-10.6)
[2019-11-03 14:33] VITALS: BP 132/61; RESP 16; TEMP 98.1
[2019-11-03 16:14] VITALS: PULSE 78
[2019-11-03 16:42] LABS: Glucose,Whole Blood 116 mg/dL (75-99)
[2019-11-03 17:24] LABS: African American GFR (CKD) 98.9 (60.0-200.0); Anion Gap 10.5 mmol/L (4.00-12.00); BUN/Creat Ratio 35.71 Ratio (12.00-20.00); Calcium 9.4 mg/dL (8.7-10.3); Carbon Dioxide 27.5 mmol/L (21.6-31.8); Non-African American GFR(CKD) 85.4 (60.0-200.0); Potassium 4.3 mmol/L (3.5-5.5)
[2019-11-03] MEDS: SODIUM CHLORIDE 0.9% 1,000 ML IV SCH (17:40)
--- NOTE | 2019-11-14 12:31 | P.DS ---
Providers Date of admission: 10/30/19 12:02 Expected date of discharge: 11/03/19 Attending physician: Anastacia Bentley Consults: 10/30/19 11:42 Consult Physician Stat Consulting Provider: Vishal Weir Reason/Comments: POSSIBLE ASPIRATION,COPD,ON BIPAP Do you want consulting provider notified?: Already Contacted Primary care physician: Alcon Melgoza Hospital Course: Discharge Diagnosis Acute hypoxic respiratory failure due to Acute bronchospasm and possible aspiration during colonoscopy procedure.extubated currently Elective colonoscopy for cancer surveillance due to history of polyps. Advanced COPD History of multiple nonspecific pulmonary nodules on follow-up with pulmonary in the clinic GERD Previous history of smoking DVT prophylaxis. Hospital Course. Patient is a 44-year-old female with a known history of COPD and family history of colon cancer in both parents and a prior history of colon polyps, previous history of smoking was initially scheduled for elective colonoscopy for cancer surveillance. Patient was found to have 5 mm ascending colon polyp status post removal by cold biopsy and also found to have scattered left-sided diverticulosis. Postprocedure patient became hypoxic and wheezy and went into respiratory failure. Patient was placed BiPAP in the recovery area. Patient was given a dose of epinephrine and IV Decadron 6 mg for acute bronchospasm. Patient became very anxious and also given 0.5 mg of Ativan. Due to continued dyspnea patient was eventually intubated and transferred to MICU. Patient was very restless and fighting over the vent. Patient was given a dose of morphine and was placed on Versed drip. ABG showed pH of 7.33, PCO2 47, PO2 176 and bicarb is 26 Lab data showed WBC 15.8, hemoglobin 13.3 and platelets 325 Electrolytes within normal limits. Blood sugar was 316 Chest x-ray showed patchy density left perihilar and right infrahilar region may reflect underlying infiltrate. Correlate clinically and progress studies are recommended. 10/31/2019 Patient was extubated today. Currently sitting on the chair comfortably. Still requiring 3 L oxygen via nasal cannula. Patient is not on home oxygen. Bilateral diffuse wheezing is present. Chest x-ray showed no evidence of significant abnormality. Minimal left perihilar infiltrate noted. Right lower lobe atelectasis or infiltrate noted. Patient is currently on antibiotics in form of Zosyn. Laboratory data showed WBC 14.9 and hemoglobin 11.5 and platelet count 239 BUN 15 and creatinine 0.66 A1c level is 5.6 11/01/2019 Patient is currently awake alert oriented x3. Sitting in the chair comfortably. Overall air entry is much improved. Still having expiratory wheezing. Currently on oxygen at 2 L via nasal cannula. Continued on IV steroids and duo nebs and antibiotics. Laboratory data showed WBC 15.3 Hemoglobin 10.8 Lymphocytes 0.5 and absolute neutrophils 14.4 Patient is being transferred to medical floor today. 11/02/2019 Patient is currently sitting the chair comfortably. Breathing is much easier and still having expiratory wheeze and prolonged expiration. Bilateral air entry is much improved. Otherwise patient is still requiring oxygen via nasal cannula at 2 L. We will continue with IV Solu-Medrol and duo nebs and antibiotics in the form of Zosyn. Will arrange for home oxygen and oxygen evaluation. Anticipate discharge in the next 24 hours with more clinical improvement. 11/03/2019 Patient is currently sitting in the chair comfortably. No complaints of chest pain or shortness breath. Wheezing is much improved and bilateral air entry is good. No complaints of chest pain. Patient is requiring oxygen via nasal cannula and home oxygen evaluation was done. Patient did require home oxygen and is being arranged. Otherwise patient will be continued on tapering steroid course and follow-up with pulmonary as outpatient. PHYSICAL EXAMINATION: Patient is lying in the bed comfortably,Awake alert and oriented x3.. HEENT: Normocephalic. Neck is supple. Pupils reactive. Nostrils clear. Oral cavity is moist. Ears reveal no drainage. Neck reveals no JVD, carotid bruits, or thyromegaly. CHEST EXAMINATION: Trachea is central. Symmetrical expansion. minimal exp wheezing otherwise no crackles. Bilateral air entry present. . CARDIAC: Normal S1, S2 with no gallops. No murmurs ABDOMEN: Soft. Bowel sounds normal. No organomegaly. No abdominal bruits. Extremities: reveal no edema. No clubbing or cyanosis Neurologically Patient is currently sedated and intubated.. No focal deficits noted Skin: No rash or skin lesions. Psychiatric: Cooperative. Nonsuicidal. Musculoskeletal: No joint swelling or deformity. Discharge Vitals reviewed. Patient Condition at Discharge: Stable Plan - Discharge Summary Discharge Rx Participant: Yes New Discharge Prescriptions: New Amoxicillin/Potassium Clav [Augmentin 875-125 Tablet] 1 tab PO Q12HR 3 Days #6 tab predniSONE See Taper PO DIRECTED #30 tab Continue Fluticasone/Salmeterol [Advair 250-50 Diskus] 1 inhalation PO BID Albuterol Sulfate [Ventolin HFA] 1 - 2 puff INHALATION Q6H PRN PRN Reason: COPD Ipratropium-Albuterol Nebulize [Duoneb 0.5 mg-3 mg/3 ml Soln] 3 ml INHALATION AC-TID PRN PRN Reason: Dyspnea Discharge Medication List Albuterol Sulfate [Ventolin HFA] 1 - 2 puff INHALATION Q6H PRN 10/29/19 [History] Fluticasone/Salmeterol [Advair 250-50 Diskus] 1 inhalation PO BID 10/29/19 [History] Ipratropium-Albuterol Nebulize [Duoneb 0.5 mg-3 mg/3 ml Soln] 3 ml INHALATION AC-TID PRN 11/02/19 [History] Amoxicillin/Potassium Clav [Augmentin 875-125 Tablet] 1 tab PO Q12HR 3 Days #6 tab 11/03/19 [Rx] predniSONE See Taper PO DIRECTED #30 tab 11/03/19 [Rx] Follow up Appointment(s)/Referral(s): Vishal Weir MD [STAFF PHYSICIAN] - 1 Week Kenyetta Narvaez MD [STAFF PHYSICIAN] - As Needed [facility], [NON-STAFF] - Patient Instructions/Handouts: COPD (Chronic Obstructive Pulmonary Disease) (DC) Discharge Disposition: HOME WITH HOME HEALTH SERVICES
== END 2019-11-03 18:15 | disposition home health service (06) | DRG 208 ==
LOC: ORWHC2ENDO 08:59 → 2SICU 12:02 → 4SSUR 11-01 19:06
PROVIDERS: ADMIT Hospitalist; ATTEND Hospitalist
PROC: 05HF33Z Insertion of Infusion Device into Left Cephalic Vein, Percutaneous Approach (ICD-10-PCS; 2019-10-30)
PROC: 0DBK8ZZ Excision of Ascending Colon, Via Natural or Artificial Opening Endoscopic (ICD-10-PCS; 2019-10-30)
PROC: 03HY32Z Insertion of Monitoring Device into Upper Artery, Percutaneous Approach (ICD-10-PCS; principal; 2019-10-30 09:50)
PROC: 5A1935Z Respiratory Ventilation, Less than 24 Consecutive Hours (ICD-10-PCS; principal; 2019-10-30 09:50)
PROC: 4A133B1 Monitoring of Arterial Pressure, Peripheral, Percutaneous Approach (ICD-10-PCS; principal; 2019-10-30 09:50)
PROC: 4A133J1 Monitoring of Arterial Pulse, Peripheral, Percutaneous Approach (ICD-10-PCS; principal; 2019-10-30 09:50)
PROC: 0BH17EZ Insertion of Endotracheal Airway into Trachea, Via Natural or Artificial Opening (ICD-10-PCS; 2019-10-30 15:15)
PROC: 5A09357 Assistance with Respiratory Ventilation, Less than 24 Consecutive Hours, Continuous Positive Airway Pressure (ICD-10-PCS; 2019-10-30 15:15)
DX: J95.821 Acute postprocedural respiratory failure (principal); J69.0 Pneumonitis due to inhalation of food and vomit; J44.1 Chronic obstructive pulmonary disease with (acute) exacerbation; I95.9 Hypotension, unspecified; K57.30 Diverticulosis of large intestine without perforation or abscess without bleeding; K63.5 Polyp of colon; J30.2 Other seasonal allergic rhinitis; F41.9 Anxiety disorder, unspecified; K21.9 Gastro-esophageal reflux disease without esophagitis; Z79.899 Other long term (current) drug therapy; Z86.010 Personal history of colon polyps; Z87.442 Personal history of urinary calculi; Z87.891 Personal history of nicotine dependence; Z90.710 Acquired absence of both cervix and uterus; Z98.890 Other specified postprocedural states; Z80.0 Family history of malignant neoplasm of digestive organs
CPT/HCPCS: 36410; 36600; 45380; 71045; 76937; 80048; 80053; 82805; 83036; 83735; 84132; 85025; 88305; 94002; 94003; 94640; 94660; 94760